=== PATIENT | female | born 1950 | race African-American/Black ===

== ENCOUNTER 2016-09-14 09:43 | Emergency (ER) | payer OTHER ==
[2016-09-14 09:50] VITALS: BP 152/79; PULSE 59; TEMP 97.5; BMI 30.1
[2016-09-14] MEDS ORDERED: IBUPROFEN 600 MG TABLET (FP) PO ONE (10:01)
--- NOTE | 2016-09-14 10:21 | PDOC ---
History of Present Illness - General Chief Complaint: Pain, Acute Stated Complaint: FINGER PAIN Time Seen by Provider: 09/14/16 09:44 History Source: Patient Exam Limitations: No Limitations - History of Present Illness Initial Comments: 09/14/16 10:16 This is a 65-year-old [id number] female who presents to the emergency department with a complaint of middle finger pain. Patient works for [employer], accidentally slammed her middle finger in the door. Patient sustained a crush injury, noted bleeding from the finger. Did not know that the nail bent backwards Patient denies trauma to any other location. PMH: Hypertension, hypothyroidism, depression, prior history of breast cancer PSH: , hysterectomy Medications: Please see MAR A LL: NKDA Social: Denies alcohol, drug, cigarette use GENERAL/CONSTITUTIONAL: No: fever, chills, weakness, loss of appetite. MUSCULOSKELETAL: Yes: right middle finger pain SKIN: Yes: middle finger swelling, bleeding . GENERAL: The patient is in no acute distress. HEAD: Normal with no signs of trauma. EXTREMITIES: Right middle finger, (+) range of motion at PIP, DIP, blood beneath the nail bed (<30%), blood noted at the corners of the nail, NEUROLOGICAL: Sensation of finger in tact MUSCULOSKELETAL: (+) distal phalynx pain SKIN: swelling, brusing, small subungual hematoma Past History - Past Medical History Allergies/Adverse Reactions: Allergies Allergy/AdvReac Type Severity Reaction Status Date / Time No Known Drug Allergies Allergy Verified 09/14/16 09:44 Home Medications: Ambulatory Orders Alendronate Sodium [Fosamax] 70 mg PO WEEKLY 12/11/11 Levothyroxine [Synthroid -] 75 mcg PO DAILY 12/11/11 Citalopram Hydrobromide [Celexa -] 20 mg PO DAILY 08/21/14 Hydrochlorothiazide 25 mg PO DAILY 12/22/15 Losartan Potassium 50 mg PO DAILY 12/22/15 Anemia: No Asthma: No Cancer: No Cardiac Disorders: No CVA: No COPD: No CHF: No Dementia: No Diabetes: No GI Disorders: No Disorders: No HTN: Yes Hypercholesterolemia: No Liver Disease: No Psychiatric Problems: Yes (DEPRESSION, ANXIETY) Suicide Attempt (Hx): No Seizures: No Thyroid Disease: Yes - Surgical History Neurologic Surgery: (DISC SX IN NECK) Orthopedic Surgery: Yes (RT SHOULDER SX, LT KNEE SX) - Immunization History Immunization Up to Date: Yes - Psycho/Social/Smoking Cessation Hx Anxiety: No Suicidal Ideation: No Smoking Status: No Smoking History: Never smoked Have you smoked in the past 12 months: No Number of Cigarettes Smoked Daily: 0 Hx Alcohol Use: Yes Drug/Substance Use Hx: No Substance Use Type: Alcohol Trauma Specific PMHX - Complaint Specific PMHX Arthritis: Yes Back Injury: Yes Neck Injury: Yes *Physical Exam - Vital Signs Last Vital Signs Temp Pulse Resp BP Pulse Ox 97.5 F L 59 L 16 152/79 100 09/14/16 09:44 09/14/16 09:44 09/14/16 09:44 09/14/16 09:44 09/14/16 09:44 ED Treatment Course - RADIOLOGY Radiology Studies Ordered: Category Date Time Status FINGER(S) RIGHT [RAD] Stat Radiology 09/14/16 10:00 Ordered - Medications Given in the ED: ED Medications Discontinued Medications Generic Name Dose Route Start Last Admin Trade Name Jaylyn PRN Reason Stop Dose Admin Ibuprofen 600 mg 09/14/16 10:01 09/14/16 10:06 Motrin - PO 09/14/16 10:02 600 mg ONCE ONE Administration Medical Decision Making - Medical Decision Making 09/14/16 10:20 Pt refused x ray Pt wants to return to work I have explained that the purpose of the x ray is to exclude fracture Pt moves her finger around and states there is no fracture Wound clean and dressed *DC/Admit/Observation/Transfer Diagnosis at time of Disposition: Injury to fingernail Qualifiers: Encounter type: initial encounter Laterality: right Qualified Code(s): S69.91XA - Unspecified injury of right wrist, hand and finger(s), initial encounter Finger injury Qualifiers: Encounter type: initial encounter Laterality: right Qualified Code(s): S69.91XA - Unspecified injury of right wrist, hand and finger(s), initial encounter - Discharge Dispostion Disposition: HOME Condition at time of disposition: Stable Admit: No - Patient Instructions Printed Discharge Instructions: DI for Crush Injury Additional Instructions: Ms Car Thank you for coming in to the ER today Please keep finger clean and covered Please take motrin or tylenol for pain Please monitor the bruise beneath the nail, if it enlarges to more than half of the nail bed, please come back to see us in the ER monitor for signs of infection - Post Discharge Activity Work/School Note: Back to Work
== END 2016-09-14 10:26 | disposition home or self-care (01) ==
LOC: FER 09:43
DX: S69.91XA Unspecified injury of right wrist, hand and finger(s), initial encounter (principal); W23.1XXA Caught, crushed, jammed, or pinched between stationary objects, initial encounter; Y93.89 Activity, other specified; Y92.9 Unspecified place or not applicable; Y99.0 Civilian activity done for income or pay; E03.9 Hypothyroidism, unspecified; F32.9 Major depressive disorder, single episode, unspecified; Z85.3 Personal history of malignant neoplasm of breast
CPT/HCPCS: 99282-25

== ENCOUNTER 2016-11-19 17:30 | Emergency (ER) | payer OTHER ==
--- NOTE | 2016-11-19 18:49 | PDOC ---
History of Present Illness - General History Source: Patient Exam Limitations: No Limitations - History of Present Illness Initial Comments: 11/19/16 18:54 This is a 66 year old female with a significant past medical history of hypertension, hypothyroidism, depression, prior history of breast cancer who presents to the emergency department s/p fall. She reports back of the head pain , neck pain and midline thoracic spine pain s/p fall. Patient states that she fell today in the shower and hit the back of her head. She denies any LOC, nausea or vomiting. PSH: , hysterectomy ALL: NKDA Social: Patient works for [employer] at [employer],. Denies alcohol, drug, cigarette use <Nika Kinsey - Last Filed: 11/19/16 19:00> - General History Source: Patient Exam Limitations: No Limitations <Bing Pettit - Last Filed: 11/20/16 11:04> - General Chief Complaint: Injury Stated Complaint: FELL & STRUCK HEAD, NECK, BACK Time Seen by Provider: 11/19/16 18:48 Past History <Nika Kinsey - Last Filed: 11/19/16 19:00> - Past Medical History Anemia: No Asthma: No Cancer: No Cardiac Disorders: No CVA: No COPD: No CHF: No Dementia: No Diabetes: No GI Disorders: No Disorders: No HTN: Yes Hypercholesterolemia: No Liver Disease: No Psychiatric Problems: Yes (DEPRESSION, ANXIETY) Suicide Attempt (Hx): No Seizures: No Thyroid Disease: Yes - Surgical History Neurologic Surgery: (DISC SX IN NECK) Orthopedic Surgery: Yes (RT SHOULDER SX, LT KNEE SX) - Immunization History Immunization Up to Date: Yes - Psycho/Social/Smoking Cessation Hx Anxiety: No Suicidal Ideation: No Smoking Status: No Smoking History: Never smoked Have you smoked in the past 12 months: No Number of Cigarettes Smoked Daily: 0 Hx Alcohol Use: Yes Drug/Substance Use Hx: No Substance Use Type: Alcohol <Bing Pettit - Last Filed: 11/20/16 11:04> - Past Medical History Allergies/Adverse Reactions: Allergies Allergy/AdvReac Type Severity Reaction Status Date / Time No Known Drug Allergies Allergy Verified 09/14/16 09:44 Home Medications: Ambulatory Orders Levothyroxine [Synthroid -] 75 mcg PO DAILY 12/11/11 Citalopram Hydrobromide [Celexa -] 20 mg PO DAILY 08/21/14 Hydrochlorothiazide 25 mg PO DAILY 12/22/15 Losartan Potassium 50 mg PO DAILY 12/22/15 Trauma Specific PMHX - Complaint Specific PMHX Arthritis: Yes Back Injury: Yes Neck Injury: Yes <Bing Pettit - Last Filed: 11/20/16 11:04> Review of Systems - Review of Systems Able to Perform ROS?: Yes Comments:: 11/19/16 18:54 GENERAL/CONSTITUTIONAL: No: fever, chills, weakness, loss of appetite. HEAD, EYES, EARS, NOSE AND THROAT: (+)back of the head pain. No: change in vision, ear pain, discharge, sore throat, throat swelling. CARDIOVASCULAR: No: chest pain, lightheadedness, palpitations, syncope RESPIRATORY: No: cough, shortness of breath, wheezing, hemoptysis, stridor. GASTROINTESTINAL: No: nausea, vomiting, abdominal cramping, diarrhea, rectal bleeding, constipation. GENITOURINARY: No: dysuria, hematuria, frequency, urgency, flank pain. MUSCULOSKELETAL: (+)neck pain, midline thoracic spine pain. No: joint pain, muscle swelling or pain SKIN: No: lesions, pallor, rash or easy bruising. NEUROLOGIC: No: headache, vertigo, paresthesias, weakness ENDOCRINE: No: unexplained weight gain or loss HEMATOLOGIC/LYMPHATIC: No: anemia, easy bleeding, swelling nodes <Nika Kinsey - Last Filed: 11/19/16 19:00> *Physical Exam - Vital Signs Last Vital Signs Temp Pulse Resp BP Pulse Ox 98.3 F 60 16 135/70 99 11/19/16 18:34 11/19/16 18:34 11/19/16 18:34 11/19/16 18:34 11/19/16 18:34 - Physical Exam Comments: 11/19/16 19:00 GENERAL: The patient is in no acute distress. HEAD: Normal with no signs of trauma. EYES: PERRLA, EOMI, sclera anicteric, conjunctiva clear. ENT: Ears normal, nares patent, oropharynx clear without exudates. Moist mucous membranes. NECK: Normal range of motion, supple without lymphadenopathy, JVD, or masses. LUNGS: Breath sounds equal, clear to auscultation bilaterally. No wheezes, and no crackles. HEART:Regular rate and rhythm, normal S1 and S2 without murmur, rub or gallop. ABDOMEN: Soft, nontender, normoactive bowel sounds. No guarding, no rebound. EXTREMITIES: Normal range of motion, no edema. No clubbing or cyanosis. No erythema, or tenderness. NEUROLOGICAL: Cranial nerves II through XII grossly intact. Normal speech. No focal neurological deficits. MUSCULOSKELETAL: (+)mild tenderness to thoracic spine, no CVA tenderness SKIN: No obvious hematoma. Warm, Dry, normal turgor, no rashes or lesions noted. <Nika Kinsey - Last Filed: 11/19/16 19:00> Medical Decision Making - Medical Decision Making 11/19/16 18:49 A portion of this note was documented by scribe services under my direction. I have reviewed the details of the note, within reason, and agree with the documentation with the following case summary and management plan written by me. Nursing documentation reviewed and incorporated into medical decision making 66- year-old female with a prior history of breast cancer presented to the emergency department status post fall in her bathroom. Patient states she slipped backwards hit the back of her head. No loss of consciousness. No amnesia. Patient presents to the ER for evaluation. Patient reports some pain in her upper back. On examination: Pt is well appearing Mild midline tenderness to palpation No focal weakness or numbness Ambulatory with no difficulty Will do Tylenol for pain. Will do head CT, cervical spine CT. Pt signed out to Dr Grant <Bing Pettit - Last Filed: 11/20/16 11:04> *DC/Admit/Observation/Transfer - Attestations Scribe Attestion: 11/19/16 18:54 Documentation prepared by THEA Emery, acting as medical library assistant for Bing Pettit MD. <Nika Kinsey - Last Filed: 11/19/16 19:00> <Bing Pettit - Last Filed: 11/20/16 11:04> Diagnosis at time of Disposition: Cervical strain, Upper back strain - Discharge Dispostion Disposition: HOME Condition at time of disposition: Stable - Referrals Referrals: Anastasiya Garcia MD [Primary Care Provider] - - Patient Instructions Printed Discharge Instructions: DI for Cervical Muscle Strain Additional Instructions: tylenol as needed for pain no work tomorrow followup with your general doctor within 48 hours - Post Discharge Activity Work/School Note: Back to Work
[2016-11-19 18:53] VITALS: BP 135/70; PULSE 60; TEMP 98.3; BMI 30.1
[2016-11-19] MEDS ORDERED: ACETAMINOPHEN 325 MG TABLET (FP) PO ONE (18:54)
[2016-11-19] MEDS ORDERED: ACETAMINOPHEN 325 MG TABLET (FP) ONE (20:01)
--- NOTE | 2016-11-19 20:29 | PDOC ---
*Physical Exam - Vital Signs Last Vital Signs Temp Pulse Resp BP Pulse Ox 98.3 F 60 16 135/70 99 11/19/16 18:34 11/19/16 18:34 11/19/16 18:34 11/19/16 18:34 11/19/16 18:34 ED Treatment Course - Medications Given in the ED: ED Medications Discontinued Medications Generic Name Dose Route Start Last Admin Trade Name Jaylyn PRN Reason Stop Dose Admin Acetaminophen 975 mg 11/19/16 18:54 11/19/16 20:02 Tylenol - PO 11/19/16 18:55 975 mg ONCE ONE Administration Progress Note - Progress Note Progress Note: Care of this patient received from Dr. Pettit. Medical Decision Making - Medical Decision Making Noncontrast CT of the head and cervical spine CT performed to evaluate for acute trauma. No evidence of intracranial pathology. No evidence of skull fracture. Cervical spine CT shows evidence of previous fusion surgery but no acute fracture or dislocation Results discussed with the patient. Patient will not work tomorrow and documentation was provided for her. Patient states that she will take Tylenol at home. She return to the emergency room if she has severe pain/paresthesias/weakness Follow-up with her general doctor should be within the 48 hrs *DC/Admit/Observation/Transfer Diagnosis at time of Disposition: Cervical strain Qualifiers: Encounter type: initial encounter Qualified Code(s): S16.1XXA - Strain of muscle, fascia and tendon at neck level, initial encounter Upper back strain Qualifiers: Encounter type: initial encounter Qualified Code(s): S29.012A - Strain of muscle and tendon of back wall of thorax, initial encounter - Discharge Dispostion Disposition: HOME Condition at time of disposition: Stable - Referrals Referrals: Anastasiya Garcia MD [Primary Care Provider] - - Patient Instructions Printed Discharge Instructions: DI for Cervical Muscle Strain Additional Instructions: tylenol as needed for pain no work tomorrow followup with your general doctor within 48 hours - Post Discharge Activity Work/School Note: Back to Work
== END 2016-11-19 21:00 | disposition home or self-care (01) ==
LOC: FER 17:30
DX: S16.1XXA Strain of muscle, fascia and tendon at neck level, initial encounter (principal); S29.012A Strain of muscle and tendon of back wall of thorax, initial encounter; W18.30XA Fall on same level, unspecified, initial encounter; Y93.E1 Activity, personal bathing and showering; Y92.002 Bathroom of unspecified non-institutional (private) residence as the place of occurrence of the external cause; F41.8 Other specified anxiety disorders; I10 Essential (primary) hypertension
CPT/HCPCS: 70450-TC; 72070-TC; 72125-TC; 99281-25

== ENCOUNTER 2017-01-31 12:13 | Emergency (ER) | payer MEDICARE ==
[2017-01-31 12:30] VITALS: BP 125/72; PULSE 58; TEMP 98; BMI 27.4
[2017-01-31] MEDS ORDERED: IBUPROFEN 600 MG TABLET (FP) PO ONE ×2 (14:21→14:27)
--- NOTE | 2017-01-31 14:21 | PDOC ---
History of Present Illness - General History Source: Patient Exam Limitations: No Limitations - History of Present Illness Initial Comments: The patient is a 66 yo F with a past medical history significant for hypertension, hypothyroidism, depression, prior history of breast cancer (11 months ago) who presents with 3 days of neck pain s/p cleaning her house and lifting something heavy. The patient also notes a prior neck surgery where she obtained 4 plastic disks approximately 30 years ago. The patient endorses chronic fingertip numbness. The patient states she hasnt taken anything for her neck pain. 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 <Arleth Christian - Last Filed: 01/31/17 14:33> <Julian Wellington - Last Filed: 01/31/17 14:57> - General Chief Complaint: Pain Stated Complaint: NECK STIFFNESS Time Seen by Provider: 01/31/17 14:09 Past History <Arleth Christian - Last Filed: 01/31/17 14:33> - Past Medical History Anemia: No Asthma: No Cancer: No Cardiac Disorders: No CVA: No COPD: No CHF: No Dementia: No Diabetes: No GI Disorders: No Disorders: No HTN: Yes Hypercholesterolemia: No Liver Disease: No Psychiatric Problems: Yes (DEPRESSION, ANXIETY) Suicide Attempt (Hx): No Seizures: No Thyroid Disease: Yes Other medical history: BREAST CANCER - Surgical History Neurologic Surgery: (DISC SX IN NECK) Orthopedic Surgery: Yes (RT SHOULDER SX, LT KNEE SX) - Immunization History Immunization Up to Date: Yes - Psycho/Social/Smoking Cessation Hx Anxiety: No Suicidal Ideation: No Smoking Status: No Smoking History: Never smoked Have you smoked in the past 12 months: No Number of Cigarettes Smoked Daily: 0 Information on smoking cessation initiated: No Hx Alcohol Use: No Drug/Substance Use Hx: No Substance Use Type: None <Julian Wellington - Last Filed: 01/31/17 14:57> - Past Medical History Allergies/Adverse Reactions: Allergies Allergy/AdvReac Type Severity Reaction Status Date / Time No Known Drug Allergies Allergy Verified 01/31/17 12:18 Home Medications: Ambulatory Orders Levothyroxine [Synthroid -] 75 mcg PO DAILY 12/11/11 Citalopram Hydrobromide [Celexa -] 20 mg PO DAILY 08/21/14 Hydrochlorothiazide 25 mg PO DAILY 12/22/15 Losartan Potassium 50 mg PO DAILY 12/22/15 Diclofenac Sodium [Diclofenac Sodium ER] 100 mg PO DAILY #10 tab.er.24h Tamoxifen Citrate 20 mg PO DAILY 01/31/17 Trauma Specific PMHX - Complaint Specific PMHX Arthritis: Yes Back Injury: Yes Neck Injury: Yes <Julian Wellington - Last Filed: 01/31/17 14:57> Review of Systems - Review of Systems Able to Perform ROS?: Yes Comments:: CONSTITUTIONAL: Absent: fever, no chills, no fatigue EYES: Absent: visual changes ENT: Absent: ear pain, no sore throat CARDIOVASCULAR: Absent: chest pain, no palpitations RESPIRATORY: Absent: cough, no SOB GI: Absent: abdominal pain, no nausea, no vomiting, no constipation, no diarrhea GENITOURINARY: Absent: dysuria, no frequency, no hematuria MUSKULOSKELETAL: +neck pain Absent: back pain SKIN: Absent: rash <Arleth Christian - Last Filed: 01/31/17 14:33> *Physical Exam - Vital Signs Last Vital Signs Temp Pulse Resp BP Pulse Ox 98 F 58 L 16 125/72 100 01/31/17 12:14 01/31/17 12:14 01/31/17 12:14 01/31/17 12:14 01/31/17 12:14 - Physical Exam Comments: GENERAL: Well-appearing, well-nourished. No apparent distress. HEENT: Normocephalic, atraumatic. PERRL, EOM intact. mild pain was apparent with movement of the neck in both flexion and extension and rotation. There was deformity or point tenderness of vertibral bodies with mild spasm noted in sternomastoid muscles bilaterally. CARDIOVASCULAR: Normal S1, S2. Regular rate and rhythm. PULMONARY: Clear to auscultation bilaterally. ABDOMEN: Soft, non-distended, non-tender. EXTREMITIES: Normal ROM in all four extremities. No gross deformities. SKIN: Warm, dry. No rash NEUROLOGICAL: No focal neurological deficits. <Arleth Christian - Last Filed: 01/31/17 14:33> - Vital Signs Last Vital Signs Temp Pulse Resp BP Pulse Ox 98 F 58 L 16 125/72 100 01/31/17 12:14 01/31/17 12:14 01/31/17 12:14 01/31/17 12:14 01/31/17 12:14 <Julian Wellington - Last Filed: 01/31/17 14:57> ED Treatment Course - Medications Given in the ED: ED Medications Discontinued Medications Generic Name Dose Route Start Last Admin Trade Name Jaylyn PRN Reason Stop Dose Admin Ibuprofen 600 mg 01/31/17 14:21 01/31/17 14:30 Motrin - PO 01/31/17 14:22 600 mg ONCE ONE Administration <HollandchristianArleth - Last Filed: 01/31/17 14:33> Medical Decision Making - Medical Decision Making 01/31/17 14:55 Patient with prior neck surgery due to cervical disc disease, strained her neck several days ago, with muscle pain and stiffness. No focal neurologic findings. Symptomatic treatment and follow-up primary physician. Recommended rest but the patient desires to go back to work. Soft collar and anti-inflammatories and follow-up as directed. Significantly improved with Motrin. <Julian Wellington - Last Filed: 01/31/17 14:57> *DC/Admit/Observation/Transfer - Attestations Scribe Attestion: Documentation prepared by Arleth Christian, acting as medical receptionist for Julian Shelby MD/. <AnahiArleth - Last Filed: 01/31/17 14:33> - Discharge Dispostion Admit: No <Julian Wellington - Last Filed: 01/31/17 14:57> Diagnosis at time of Disposition: Cervical strain Qualifiers: Encounter type: initial encounter Qualified Code(s): S16.1XXA - Strain of muscle, fascia and tendon at neck level, initial encounter - Discharge Dispostion Disposition: HOME Condition at time of disposition: Improved - Prescriptions Prescriptions: Diclofenac Sodium [Diclofenac Sodium ER] 100 mg PO DAILY #10 tab.er.24h - Referrals Referrals: Jose David Dennison MD [Staff Physician] - - Patient Instructions Printed Discharge Instructions: DI for Cervical Muscle Strain Additional Instructions: Rest, soft collar, medication as directed. Recheck early intervention specialist if no improvement.
== END 2017-01-31 15:16 | disposition home or self-care (01) ==
LOC: FER 12:13
DX: I10 Essential (primary) hypertension (principal); E03.9 Hypothyroidism, unspecified; Z85.3 Personal history of malignant neoplasm of breast; F41.8 Other specified anxiety disorders
CPT/HCPCS: 99282-25

== ENCOUNTER 2017-02-08 09:19 | Emergency (ER) | payer MEDICARE, OTHER ==
--- NOTE | 2017-02-08 09:26 | PDOC ---
History of Present Illness - General Chief Complaint: Eye Problem Stated Complaint: LEFT EYE SWELLING Time Seen by Provider: 02/08/17 09:25 History Source: Patient Exam Limitations: No Limitations - History of Present Illness Initial Comments: 02/08/17 09:25 Patient is a 66 year old female with history of HTN and hypothyroidism presenting with pain and a small bump to the left lower eyelid. Patient stated feeling pain to the left lower eyelid two days ago and then developed a small bump that became larger and progressively more painful. The pain is currently 8 /10, worse when palpating the eyelid and unrelieved with lubricating eye-drops. Patient has no history of similar problems. Today the patient also noted some periorbital puffiness below the left eye. Denies fever, chills, recent illnesses or changes in vision. Past History - Past Medical History Allergies/Adverse Reactions: Allergies Allergy/AdvReac Type Severity Reaction Status Date / Time No Known Drug Allergies Allergy Verified 02/08/17 09:20 Home Medications: Ambulatory Orders Levothyroxine [Synthroid -] 75 mcg PO DAILY 12/11/11 Citalopram Hydrobromide [Celexa -] 20 mg PO DAILY 08/21/14 Hydrochlorothiazide 25 mg PO DAILY 12/22/15 Losartan Potassium 50 mg PO DAILY 12/22/15 Diclofenac Sodium [Diclofenac Sodium ER] 100 mg PO DAILY #10 tab.er.24h Tamoxifen Citrate 20 mg PO DAILY 01/31/17 Anemia: No Asthma: No Cancer: No Cardiac Disorders: No CVA: No COPD: No CHF: No Dementia: No Diabetes: No GI Disorders: No Disorders: No HTN: Yes Hypercholesterolemia: No Liver Disease: No Psychiatric Problems: Yes (DEPRESSION, ANXIETY) Suicide Attempt (Hx): No Seizures: No Thyroid Disease: Yes - Surgical History Neurologic Surgery: (DISC SX IN NECK) Orthopedic Surgery: Yes (RT SHOULDER SX, LT KNEE SX) - Immunization History Immunization Up to Date: Yes - Psycho/Social/Smoking Cessation Hx Anxiety: No Suicidal Ideation: No Smoking Status: No Smoking History: Never smoked Have you smoked in the past 12 months: No Number of Cigarettes Smoked Daily: 0 Hx Alcohol Use: No Drug/Substance Use Hx: No Substance Use Type: None Review of Systems - Review of Systems Able to Perform ROS?: Yes Comments:: 02/08/17 10:05 GEN: Denies fever, chills, recent illness HEENTM: Endorses Pain to the left lower eye-lid, left eye puffiness,. chronic sore throat, Denies Changes to vision, pain with eye movement Respiratory: Denies Cough, Shortness of Breath Cardiac: Denies Chest Pain ABD/GI: Denies Abdominal Pain All Other Systems Reviewed and Negative Is the patient limited Norwegian proficient: No *Physical Exam - Physical Exam Comments: 02/08/17 14:12 GENERAL: Nourished, Appropriately dressed, AAOx3, NAD HEAD: NCAT EYES: PERRLA, EOMI, small ([id number]) swelling on the left lower eyelid with localized edema with erythema, mild lower eyelid edema without erythema, induration or tenderness, sclera anicteric, conjunctiva clear ENT: hearing grossly normal, nares patent, no congestion NECK: Supple, Normal ROM, no LAD, JVD, or masses RESP: Speaking in full sentences, Symmetrical chest expansion, no respiratory distress, lungs CTAB HEART: RRR, normal S1-S2, no MRG ABDOMEN: Soft, NTND, no guarding, no rebound. EXTREMITIES: Normal inspection, Normal ROM NEUROLOGICAL: CN II-XII grossly intact. Normal speech, normal gait, no focal sensorimotor deficits SKIN: Warm, Dry, normal turgor, no rashes or lesions noted. Medical Decision Making - Medical Decision Making 02/08/17 09:25 66 year old female with small tender bump on the left lower eye-lid Ddx includes but is not limited to hordeon, chalazion, pre/post-septal cellulitis Plan Provide instructions for warm compresses Provide ophthalmology followup if no improvement There is no pain on ocular movement or shaneka-orbital tenderness erythema or edema that would raise concern for cellulitis. No eye proptosis. Acute onset of painful edema most consistent with a hordeon. Diagnosis and treatment discussed with patient who expressed her understanding. Patient discharged to home. *DC/Admit/Observation/Transfer Diagnosis at time of Disposition: Hordeolum Qualifiers: Hordeolum type: externum Laterality: left Eyelid: lower Qualified Code(s): H00.015 - Hordeolum externum left lower eyelid - Discharge Dispostion Disposition: HOME Condition at time of disposition: Good Admit: No - Patient Instructions Printed Discharge Instructions: DI for Blepharitis Additional Instructions: Thank you for trusting us with your care today. I hope you were satisfied with the care you received. As we discussed, the pain and swelling in your eye is most likely the result of a hordeolum. This is commonly referred to as a sty. These can be treated by applying a warm compress to the eye several times a day. The easiest way is to use a wash cloth with warm water. If your eye does not start to feel better in a day or two, please call the telephone order dispatcher at the number provided for an appointment within 2-3 days. You should return to the emergency department if you have any significant worsening of your current symptoms or develop any new or concerning symptoms such as redness or increasing pain around the eye, pain with eye movement, or changes in vision. If you are unable to safely drive yourself, you should dial 911 immediately. - Attestations Physician Attestion: 02/08/17 09:48 I, Dr. Rob Flores, attest that this document has been prepared under my direction and personally reviewed by me in its entirety. I further attest, that it accurately reflects all work, treatment, procedures and medical decision -making performed by me.
[2017-02-08 09:29] VITALS: BP 128/70; PULSE 59; TEMP 97.8; BMI 27.8
--- NOTE | 2017-02-08 09:43 | PDOC ---
Attending Attestation - Resident Resident Name: [place],Rob - ED Attending Attestation I have performed the following: I have examined & evaluated the patient, The case was reviewed & discussed with the resident, I agree w/resident's findings & plan, Exceptions are as noted - HPI HPI: 02/08/17 09:32 66yo F hx hypothyroidism, HTN p/w painful L lower eyelid for 2 days a/w swelling. Rates pain at 8/10, tried lubricating drops and ice with minimal relief. No changes to vision, no pain with eye movement, no swelling or redness to upper eyelid. Has never had these sxs before - Physicial Exam PE: 02/08/17 09:43 GENERAL: Awake, alert, and fully oriented, in no acute distress HEAD: No signs of trauma EYES: PERRLA, EOMI, sclera anicteric, conjunctiva clear, L lower eyelid with pinpoint erythematous papule with edema to inferior eyelid but no erythema, warmth, or purulence. No pain with extraocular movements. No proptosis of the orbit or lid lag. 20/20 vision OU ENT: Auricles normal inspection, hearing grossly normal, nares patent, oropharynx clear without exudates. Moist mucosa NECK: Normal ROM, supple, no lymphadenopathy, JVD, or masses LUNGS: Breath sounds equal, clear to auscultation bilaterally. No wheezes, and no crackles HEART: Regular rate and rhythm, normal S1 and S2, no murmurs, rubs or gallops ABDOMEN: Soft, nontender, normoactive bowel sounds. No guarding, no rebound. No masses EXTREMITIES: Normal range of motion, no edema. No clubbing or cyanosis. No cords, erythema, or tenderness NEUROLOGICAL: Normal speech, cranial nerves intact, negative pronator drift, 5/ 5 strength in all 4 extremities, normal sensation to light touch in all 4 extremities, normal cerebellar exam, normal gait, normal reflexes and tone SKIN: Warm, Dry, normal turgor, no rashes or lesions noted. 02/08/17 09:47 - Medical Decision Making 02/08/17 09:45 66-year-old female history of hypertension and hypothyroidism presents with inferior left eyelid swelling and pain. History and exam consistent with a hordeolum. No erythema or warmth or purulence surrounding the eyelid and no fevers or chills, thus unlikely concomitant preseptal cellulitis. Will recommend warm compresses and follow-up with chin strap cutter within 2-3 days if swelling and pain do not improve.
== END 2017-02-08 09:50 | disposition home or self-care (01) ==
LOC: FER 09:19
DX: H00.015 Hordeolum externum left lower eyelid (principal); F41.8 Other specified anxiety disorders; E07.9 Disorder of thyroid, unspecified; I10 Essential (primary) hypertension
CPT/HCPCS: 99281-25

== ENCOUNTER 2017-06-22 14:41 | Emergency (ER) | payer MEDICARE, OTHER ==
[2017-06-22 15:01] VITALS: BP 109/63; PULSE 77; TEMP 99.8; BMI 28.6
--- NOTE | 2017-06-22 15:05 | PDOC ---
History of Present Illness - History of Present Illness Initial Comments: 06/22/17 15:17 The patient is a 66 year old female, with a significant past medical history of hypertension and Breast CA (in remission, taking medication for 5 years), who presents to the emergency department with diffuse body aches, sore throat, chills, cough, and chest pressure for 4 days. The patient states she has been in bed for 3 days, woke up today to make an attempt at going to work, however, states she felt too weak to work. The patient reports her cough is productive of white sputum. She denies shortness of breath, headache and dizziness. She denies fever, nausea , vomit, diarrhea and constipation. She denies dysuria, frequency, urgency and hematuria. Allergies: NKDA Past surgical history: none reported <Rowena Sandra - Last Filed: 06/22/17 17:26> <Eusebia Elkins - Last Filed: 06/22/17 18:27> - General Chief Complaint: Cold Symptoms Stated Complaint: COUGH AND BODY ACHES Time Seen by Provider: 06/22/17 14:57 Past History <Rowena Sandra - Last Filed: 06/22/17 17:26> - Past Medical History Anemia: No Asthma: No Cancer: Yes Cardiac Disorders: No CVA: No COPD: No CHF: No Dementia: No Diabetes: No GI Disorders: No Disorders: No HTN: Yes Hypercholesterolemia: No Liver Disease: No Psychiatric Problems: Yes (DEPRESSION, ANXIETY) Seizures: No Thyroid Disease: Yes - Surgical History Neurologic Surgery: (DISC SX IN NECK) Orthopedic Surgery: Yes (RT SHOULDER SX, LT KNEE SX) - Immunization History Immunization Up to Date: Yes - Suicide/Smoking/Psychosocial Hx Smoking Status: No Smoking History: Never smoked Have you smoked in the past 12 months: No Number of Cigarettes Smoked Daily: 0 Information on smoking cessation initiated: No Hx Alcohol Use: No Drug/Substance Use Hx: No Substance Use Type: None <Eusebia Elkins - Last Filed: 06/22/17 18:27> - Past Medical History Allergies/Adverse Reactions: Allergies Allergy/AdvReac Type Severity Reaction Status Date / Time No Known Drug Allergies Allergy Verified 06/22/17 14:46 Home Medications: Ambulatory Orders Levothyroxine [Synthroid -] 75 mcg PO DAILY 12/11/11 Citalopram Hydrobromide [Celexa -] 20 mg PO DAILY 08/21/14 Hydrochlorothiazide 25 mg PO DAILY 12/22/15 Losartan Potassium 50 mg PO DAILY 12/22/15 Tamoxifen Citrate 20 mg PO DAILY 01/31/17 Guaifenesin AC [Robitussin AC -] 5 ml PO QID PRN #60 ml MDD 20 mL 06/22/17 Review of Systems - Review of Systems Able to Perform ROS?: Yes Comments:: 06/22/17 15:17 GENERAL/CONSTITUTIONAL: (+) chills and subjective fever. No weakness. HEAD, EYES, EARS, NOSE AND THROAT: (+) sore throat. No change in vision. No ear pain or discharge. CARDIOVASCULAR: (+) chest pressure. No chest pain or shortness of breath. RESPIRATORY: (+) productive cough. No wheezing, or hemoptysis. GASTROINTESTINAL: No nausea, vomiting, diarrhea or constipation. GENITOURINARY: No dysuria, frequency, or change in urination. MUSCULOSKELETAL: (+) diffuse body aches. No joint or muscle swelling. No neck or back pain. SKIN: No rash NEUROLOGIC: No headache, vertigo, loss of consciousness, or change in strength/ sensation. ENDOCRINE: No increased thirst. No abnormal weight change. HEMATOLOGIC/LYMPHATIC: No anemia, easy bleeding, or history of blood clots. ALLERGIC/IMMUNOLOGIC: No hives or skin allergy. <Rowena Sandra - Last Filed: 06/22/17 17:26> *Physical Exam - Vital Signs Last Vital Signs Temp Pulse Resp BP Pulse Ox 99.8 F H 77 20 109/63 96 06/22/17 14:44 06/22/17 14:44 06/22/17 14:44 06/22/17 14:44 06/22/17 14:44 - Physical Exam Comments: 06/22/17 15:19 GENERAL: Awake, alert, and fully oriented, in no acute distress HEAD: No signs of trauma EYES: PERRLA, EOMI, sclera anicteric, conjunctiva clear ENT: Auricles normal inspection, hearing grossly normal, nares patent, oropharynx clear without exudates. Moist mucosa NECK: Normal ROM, supple, no lymphadenopathy, JVD, or masses LUNGS: (+) intermittent hacking cough. Breath sounds equal, clear to auscultation bilaterally. No wheezes, and no crackles HEART: Regular rate and rhythm, normal S1 and S2, no murmurs, rubs or gallops ABDOMEN: Soft, nontender, normoactive bowel sounds. No guarding, no rebound. No masses EXTREMITIES: Normal range of motion, no edema. No clubbing or cyanosis. No cords, erythema, or tenderness NEUROLOGICAL: Cranial nerves II through XII grossly intact. Normal speech, normal gait SKIN: Warm, Dry, normal turgor, no rashes or lesions noted. <Rowena Sandra - Last Filed: 06/22/17 17:26> - Vital Signs Last Vital Signs Temp Pulse Resp BP Pulse Ox 99.8 F H 77 20 109/63 96 06/22/17 14:44 06/22/17 14:44 06/22/17 14:44 06/22/17 14:44 06/22/17 14:44 <Eusebia Elkins - Last Filed: 06/22/17 18:27> ED Treatment Course - RADIOLOGY Radiograph Interpretation: EXAM#: TYPE/EXAM: RESULT: [id number] RAD/CHEST PA LAT Rule out pneumonia Chest x-ray, PA and lateral. Since prior chest x-ray dated 08/21/2014, the cardiac silhouette remains within normal limits in size. There are mild perihilar increased lung markings. Mediastinum and visualized osseous structures remain intact with osteopenia and mild degenerative changes in the thoracic spine Impression: No significant interval change or acute cardiopulmonary disease is present Reported By: Nish Mercado MD 06/22/17 1650 <Rowena Sandra - Last Filed: 06/22/17 17:26> Medical Decision Making - Medical Decision Making 06/22/17 17:38 Flu swab negative, however, suspicion for flu remains high. Patient is out of the window for tamiflu. CXR negative for consolidation. Will give one treatment for bronchospasm and monitor for improvement. DC home. 06/22/17 18:27 Pt initially declined the robitussin AC, now stating she would like the rx. Sent to her pharmacy. <Eusebia Elkins - Last Filed: 06/22/17 18:27> *DC/Admit/Observation/Transfer - Attestations Scribe Attestion: 06/22/17 15:19 Documentation prepared by Rowena Sandra, acting as biomedical instrument technician for Eusebia Elkins MD, <Rowena Sandra - Last Filed: 06/22/17 17:26> - Discharge Dispostion Admit: No <Eusebia Elkins - Last Filed: 06/22/17 18:27> Diagnosis at time of Disposition: Viral upper respiratory illness - Discharge Dispostion Disposition: HOME Condition at time of disposition: Stable - Prescriptions Prescriptions: Guaifenesin AC [Robitussin AC -] 5 ml PO QID PRN #60 ml MDD 20 mL PRN Reason: Cough - Patient Instructions Printed Discharge Instructions: DI for Viral Upper Respiratory Infection -- Adult Print Language: ITALIAN
[2017-06-22] MEDS ORDERED: IBUPROFEN 600 MG TABLET (FP) PO ONE ×2 (15:12→15:21)
[2017-06-22] MEDS ORDERED: ALBUTEROL SO4 0.083% IH SOL 2.5 MG/3 ML VIAL.NEB. NEB ONE (17:38)
== END 2017-06-22 18:35 | disposition home or self-care (01) ==
LOC: FER 14:41
PROC: 3E0F7GC Introduction of Other Therapeutic Substance into Respiratory Tract, Via Natural or Artificial Opening (ICD-10-PCS; principal; 2017-06-22)
DX: J06.9 Acute upper respiratory infection, unspecified (principal)
CPT/HCPCS: 71046-TC; 87804; 99282-25

== ENCOUNTER 2018-06-03 17:42 | Emergency (ER) | payer OTHER, MEDICARE ==
[2018-06-03 18:01] VITALS: BP 123/45; PULSE 60; TEMP 97.7; BMI 26.4
[2018-06-03] MEDS ORDERED: KETOROLAC TROMETHAMINE 30 MG/1 ML VIAL IM ONE (18:08)
[2018-06-03] MEDS ORDERED: KETOROLAC TROMETHAMINE 30 MG/1 ML VIAL ONE (18:10)
--- NOTE | 2018-06-03 18:11 | PDOC ---
History of Present Illness - General Chief Complaint: Injury Stated Complaint: RIGHT HAND INJURY Time Seen by Provider: 06/03/18 17:58 History Source: Patient - History of Present Illness Initial Comments: 06/03/18 18:12 The patient is a 67 year old female with a PMH of hypothyroidism, Breast CA and HTN who presents to the ED following a mechanical fall. Patient was walking when she tripped on an umbrella on the floor. Patient states she fell forward inverting her R wrist and hitting her R knee. Denies any associated head trauma. Immediately ambulatory following fall. Coworker brought patient to ED for further evaluation. 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 Patient denies chest pain, shortness of breath, abdominal pain, nausea/vomiting , diarrhea/constipation, dysuria/hematuria. NKDA Surgical: hysterectomy, R shoulder surgery, L knee surgery, herniated disc repair Social: denies current toxic habits; former smoker PMD: Dr. Garza As per EMR patient previously evaluated for fall in 2017 -- patient slipped in the shower. Head/C-spine CT negative. More recently patient evaluated in 2017 for cough and body aches. Past History - Past Medical History Allergies/Adverse Reactions: Allergies Allergy/AdvReac Type Severity Reaction Status Date / Time No Known Drug Allergies Allergy Verified 06/03/18 17:43 Home Medications: Ambulatory Orders Levothyroxine [Synthroid -] 75 mcg PO DAILY 12/11/11 Citalopram Hydrobromide [Celexa -] 20 mg PO DAILY 08/21/14 Hydrochlorothiazide 25 mg PO DAILY 12/22/15 Losartan Potassium 50 mg PO DAILY 12/22/15 Tamoxifen Citrate 20 mg PO DAILY 01/31/17 Ibuprofen [Motrin -] 800 mg PO QID PRN #12 tablet 06/03/18 Anemia: No Asthma: No Cancer: Yes (BREAST) Cardiac Disorders: No CVA: No COPD: No CHF: No Dementia: No Diabetes: No GI Disorders: No Disorders: No HTN: Yes Hypercholesterolemia: No Liver Disease: No Psychiatric Problems: Yes (DEPRESSION, ANXIETY) Seizures: No Thyroid Disease: Yes - Surgical History Neurologic Surgery: (DISC SX IN NECK) Orthopedic Surgery: Yes (RT SHOULDER SX, LT KNEE SX) - Immunization History Immunization Up to Date: Yes - Suicide/Smoking/Psychosocial Hx Smoking Status: No Smoking History: Former smoker Have you smoked in the past 12 months: No Number of Cigarettes Smoked Daily: 0 If you are a former smoker, when did you quit?: 20 YEARS Information on smoking cessation initiated: No Hx Alcohol Use: Yes (SOCIAL) Drug/Substance Use Hx: No Substance Use Type: None *Physical Exam - Vital Signs Last Vital Signs Temp Pulse Resp BP Pulse Ox 97.7 F 60 16 123/45 L 100 06/03/18 17:43 06/03/18 17:43 06/03/18 17:43 06/03/18 17:43 06/03/18 17:43 - Physical Exam General Appearance: Yes: Nourished, Appropriately Dressed HEENT: positive: Normal Voice, Hearing Grossly Normal Neck: positive: Trachea midline, Supple Cardiovascular: positive: Regular Rhythm, Regular Rate, S1, S2. negative: Edema , JVD Vascular Pulses: Dorsalis-Pedis (R): 2+, Doralis-Pedis (L): 2+ Gastrointestinal/Abdominal: positive: Normal Bowel Sounds, Soft Extremity: positive: Normal Capillary Refill, Normal Inspection, Other (RUE: diffuse TTP, minimal edema, limited digit ROM, 2+ radial pulse; RLE: patellar TTP w/abrasion, extensor mechanism intact;) Integumentary: positive: Normal Color, Dry, Warm Neurologic: positive: Fully Oriented, Alert Moderate Sedation - Procedure Monitoring Vital Signs: Procedure Monitoring Vital Signs Temperature 97.7 F 06/03/18 17:43 Pulse Rate 60 06/03/18 17:43 Respiratory Rate 16 06/03/18 17:43 Blood Pressure 123/45 L 06/03/18 17:43 O2 Sat by Pulse Oximetry (%) 100 06/03/18 17:43 Medical Decision Making - Medical Decision Making 06/03/18 18:34 67 year old female s/p mechanical fall c/o R wrist and R patellar pain. VS shows BP 123/45, other VS unremarkable. PE shows RLE: extensor mechanism intact , diffuse patellar tenderness, RUE: diffuse tenderness on dorsal/volar wrist, limited digit ROM. Will obtain R hand/wrist XR w/scaphoid view as well as knee 3 view x-ray. Toradol for pain. Reassess. 06/03/18 19:15 Wet read of wrist XR shows no radial or ulnar dislocation, no carpal bone, including scaphoid fracture Patellar X-ray shows no patellar fracture/dislocation As patient continues to c/o TTP over scaphoid and generally wrist area will splint and referral to ortho for further evaluation including possible repeat XR. Thumb spica splint applied. Patient discharged home with supportive care and orthopedic referral. I discussed the physical exam findings, ancillary test results and final diagnoses with the patient. I answered all of the patient's questions. The patient was satisfied with the care received and felt comfortable with the discharge plan and treatment plan. The patient will return to the Emergency Department with any new, persistent or worsening symptoms. *DC/Admit/Observation/Transfer Diagnosis at time of Disposition: Fall, Wrist sprain - Discharge Dispostion Disposition: HOME Condition at time of disposition: Stable Decision to Admit order: No - Prescriptions Prescriptions: Ibuprofen [Motrin -] 800 mg PO QID PRN #12 tablet PRN Reason: Pain - Referrals Referrals: Denis Abarca MD [Staff Physician] - - Patient Instructions Printed Discharge Instructions: How to Prevent Falls Additional Instructions: You can use Motrin (up to 3200 mg daily) alternating with Tylenol (up to 4000 mg daily) for your pain. Please make an appointment with orthopedic surgery within the next 2 days for evaluation. You should not return to work until cleared by orthopedic surgery and your care is not complete until you are evaluated by an orthopedic surgeon. Return to the Emergency Department for increased pain, numbness or any new/ worsening/concerning symptoms. - Post Discharge Activity Forms/Work/School Notes: Back to Work
--- NOTE | 2018-06-03 18:58 | PDOC ---
Attending Attestation - Resident Resident Name: Margarita Schultz - ED Attending Attestation I have performed the following: I have examined & evaluated the patient, The case was reviewed & discussed with the resident, I agree w/resident's findings & plan, Exceptions are as noted - Medical Decision Making 06/03/18 19:10 No acute fracture dislocation noted on patient's x-ray given tenderness to palpation over the scaphoid patient placed in thumb spica splint Pt will follow-up with orthopedics this week. Findings, need for follow-up and strict return instructions discussed with patient. <Luan Suazo - Last Filed: 06/03/18 19:10> - HPI HPI: 06/03/18 18:58 The patient is a 67 year old female, with a significant past medical history of HTN, breast CA, hypothyroidism, depression and anxiety, who presents to the ED after a mechanical fall today. She reports that she tripped on an umbrella on the floor and fell forward injuring her right hand / wrist and right knee. She denies any head trauma or loss of consciousness. The patient denies chest pain, shortness of breath, headache and dizziness. Allergies: None Past surgical history: RT SHOULDER SX, LT KNEE SX, Neck Surgery, hysterectomy Social History: Alcohol use. Former smoker - Physicial Exam PE: 06/03/18 18:58 Vitals: Triage Vital signs reviewed General Appearance: no acute distress, well nourished well developed, Head: Atraumatic, normocephalic Extremity: (+) Normal Capillary Refill, Normal Inspection, Other (RUE: diffuse TTP, minimal edema, limited digit ROM, 2+ radial pulse; RLE: patellar TTP, extensor mechanism intact;) <Negrito Spencer - Last Filed: 06/03/18 19:10>
== END 2018-06-03 19:24 | disposition home or self-care (01) ==
LOC: FER 17:42
CPT/HCPCS: 73110-TC-RT-FY; 73130-TC-RT-FY; 73562-TC-RT-FY; 99282-25

== ENCOUNTER 2018-06-15 17:34 | Emergency (ER) | payer OTHER, MEDICARE ==
[2018-06-15 17:45] VITALS: BP 156/69; PULSE 58; TEMP 97.5; BMI 26.2
--- NOTE | 2018-06-15 17:48 | PDOC ---
History of Present Illness - General Chief Complaint: Head/Neck problem Stated Complaint: NECK PAIN Time Seen by Provider: 06/15/18 17:40 History Source: Patient Exam Limitations: No Limitations - History of Present Illness Initial Comments: 06/15/18 17:43 67 y/o female fell at work 1 week ago and injurred her right hand. Comes to ER today complaining of neck pain for 3 days. Hurts more with movement. Has not taken anything for the pain. No weakness, numbness, headache, fever or incontinence. Requesting a soft collar. Severity: mild Modifying Factors: improves with: immobilization Past History - Past Medical History Allergies/Adverse Reactions: Allergies Allergy/AdvReac Type Severity Reaction Status Date / Time No Known Drug Allergies Allergy Verified 06/03/18 17:43 Home Medications: Ambulatory Orders Levothyroxine [Synthroid -] 75 mcg PO DAILY 12/11/11 Citalopram Hydrobromide [Celexa -] 20 mg PO DAILY 08/21/14 Hydrochlorothiazide 25 mg PO DAILY 12/22/15 Losartan Potassium 50 mg PO DAILY 12/22/15 Tamoxifen Citrate 20 mg PO DAILY 01/31/17 Ibuprofen [Motrin -] 800 mg PO QID PRN #12 tablet 06/03/18 Cyclobenzaprine HCl [Flexeril -] 10 mg PO TID #10 tablet 06/15/18 Anemia: No Asthma: No Cancer: Yes (BREAST) Cardiac Disorders: No CVA: No COPD: No CHF: No Dementia: No Diabetes: No GI Disorders: No Disorders: No HTN: Yes Hypercholesterolemia: No Liver Disease: No Psychiatric Problems: Yes (DEPRESSION, ANXIETY) Seizures: No Thyroid Disease: Yes - Surgical History Neurologic Surgery: (DISC SX IN NECK) Orthopedic Surgery: Yes (RT SHOULDER SX, LT KNEE SX) - Immunization History Immunization Up to Date: Yes - Suicide/Smoking/Psychosocial Hx Smoking Status: No Smoking History: Former smoker Have you smoked in the past 12 months: No Number of Cigarettes Smoked Daily: 0 If you are a former smoker, when did you quit?: 20 YEARS Hx Alcohol Use: Yes (SOCIAL) Drug/Substance Use Hx: No Substance Use Type: None Review of Systems - Review of Systems Able to Perform ROS?: Yes Is the patient limited Urdu proficient: No Constitutional: No: Chills, Fever HEENTM: No: Blurred Vision, Throat Pain Respiratory: No: Cough, Shortness of Breath Cardiac (ROS): No: Chest Pain ABD/GI: No: Nausea, Vomiting : No: Burning Musculoskeletal: Yes: Muscle Pain, Neck Pain. No: Back Pain Neurological: No: Headache, Numbness, Paresthesia All Other Systems: Reviewed and Negative *Physical Exam - Physical Exam General Appearance: Yes: Nourished, Appropriately Dressed. No: Apparent Distress HEENT: positive: EOMI, MIKE, Normal ENT Inspection, Normal Voice, Symmetrical, Pharynx Normal Neck: positive: Trachea midline, Normal Thyroid, Supple. negative: Tender, Rigid Respiratory/Chest: positive: Lungs Clear, Normal Breath Sounds. negative: Chest Tender, Respiratory Distress Cardiovascular: positive: Regular Rhythm, Regular Rate, S1, S2. negative: Edema , JVD, Murmur Vascular Pulses: Femoral (R): 4+, Femoral (L): 4+, Carotid (R): 4+, Carotid (L) : 4+, Dorsalis-Pedis (R): 4+, Doralis-Pedis (L): 4+ Gastrointestinal/Abdominal: positive: Normal Bowel Sounds, Flat, Soft. negative : Tender Lymphatic: negative: Adenopathy, Tenderness, Other Musculoskeletal: positive: Normal Inspection, Muscle Spasm (tenderness to paracervical muscles b/l, no spinous process tenderness, full ROM). negative: CVA Tenderness, Vertebral Tenderness Extremity: positive: Normal Capillary Refill, Normal Inspection, Normal Range of Motion Integumentary: positive: Normal Color, Dry, Warm. 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: editing clerk II-XII NML intact, Fully Oriented, Normal Mood/Affect , Normal Response, Motor Strength 5/5 (strength 5+/5 b/l in UE and LE, no focal deficits noted) ED Treatment Course - ADDITIONAL ORDERS Additional order review: 06/15/18 18:18 Pt doing well, no neurological deficits noted Will place in soft collar Flexeril, rest Follow up with PMD If worsen return to ER Pt is in agreement with plan 06/15/18 18:19 X-ray cervical spine: hardware in place, no fracture, straightening of lordotic curve - RADIOLOGY Radiology Studies Ordered: Category Date Time Status SPINE-CERVICAL [RAD] Stat Radiology 06/15/18 17:42 Ordered *DC/Admit/Observation/Transfer Diagnosis at time of Disposition: Cervical strain, acute Qualifiers: Encounter type: initial encounter Qualified Code(s): S16.1XXA - Strain of muscle, fascia and tendon at neck level, initial encounter - Discharge Dispostion Disposition: HOME Condition at time of disposition: Good Decision to Admit order: No - Referrals Referrals: Blanca Hernandez MD [Primary Care Provider] - - Patient Instructions Printed Discharge Instructions: DI for Cervical Muscle Strain Additional Instructions: Ice, Motrin, rest Flexeril 10 mg 3x/day as needed Soft collar as directed If worsen return to ER - Post Discharge Activity
== END 2018-06-15 18:25 | disposition home or self-care (01) ==
LOC: FER 17:34 → SUPCPDRO 17:34 → FER 18:25
DX: S16.1XXA Strain of muscle, fascia and tendon at neck level, initial encounter (principal); X58.XXXA Exposure to other specified factors, initial encounter; Y93.89 Activity, other specified; Y92.89 Other specified places as the place of occurrence of the external cause; Z87.891 Personal history of nicotine dependence; F41.8 Other specified anxiety disorders; E07.9 Disorder of thyroid, unspecified; I10 Essential (primary) hypertension; Z85.3 Personal history of malignant neoplasm of breast
CPT/HCPCS: 72050-TC-FY; 99282-25

== ENCOUNTER 2018-12-16 21:39 | Emergency (ER) | payer OTHER ==
[2018-12-16 21:46] VITALS: BP 135/66; PULSE 71; TEMP 99; BMI 28.0
[2018-12-16] MEDS ORDERED: KETOROLAC TROMETHAMINE 60 MG/2 ML VIAL IM ONE (22:05)
[2018-12-16] MEDS ORDERED: KETOROLAC TROMETHAMINE 60 MG/2 ML VIAL ONE (22:23)
== END 2018-12-16 23:43 | disposition home or self-care (01) ==
LOC: FER 21:39
PROC: 3E0233Z Introduction of Anti-inflammatory into Muscle, Percutaneous Approach (ICD-10-PCS; principal; 2018-12-16)
DX: S29.011A Strain of muscle and tendon of front wall of thorax, initial encounter (principal); X58.XXXA Exposure to other specified factors, initial encounter; Y93.89 Activity, other specified; Y92.89 Other specified places as the place of occurrence of the external cause; Z85.3 Personal history of malignant neoplasm of breast; G89.29 Other chronic pain
CPT/HCPCS: 99281-25

== ENCOUNTER 2019-12-20 14:10 | Emergency (ER) | payer OTHER ==
[2019-12-20 14:16] VITALS: BP 140/71; PULSE 62; TEMP 98.8; BMI 28.1
[2019-12-20 14:48] LABS: BASO % 0.7 % (0-2.0); EOS % 2.8 % (0-4.5); HEMOGLOBIN 11.8 GM/dl (10.7-15.3); MCH 30.9 pg (25.7-33.7); MCHC 32.9 g/dl (32.0-36.0); MEAN CELL VOLUME 93.9 fl (80-96); MEAN PLT VOLUME 10.3 fl (7.5-11.1); NEUT % 50.5 % (42.8-82.8); PLATELET COUNT 166 K/MM3 (134-434); RBC 3.83 M/mm3 (3.60-5.2); RDW 13.3 % (11.6-15.6); WHITE BLOOD COUNT 4.4 K/mm3 (4.0-10.8)
[2019-12-20 15:03] LABS: ALBUMIN 3.7 g/dl (3.4-5.0); BILIRUBIN,TOTAL 0.6 mg/dl (0.2-1); CALCIUM 9.3 mg/dl (8.5-10); CREATININE 1.2 mg/dl (0.55-1.3); POTASSIUM 3.5 mmol/L (3.5-5.1); TOT PROT 6.9 g/dl (6.4-8.2)
--- NOTE | 2019-12-20 15:37 | PDOC ---
Documentation entered by Otto Benitez SCRIBE, acting as scribe for Nirav Guerrero MD. Nirav Guerrero MD: This documentation has been prepared by the cheryibeFlores Angel, SCRIBE, under my direction and personally reviewed by me in its entirety. I confirm that the documentation accurately reflects all work, treatment, procedures, and medical decision making performed by me. History of Present Illness - General Chief Complaint: Chest Pain Stated Complaint: LEFT CHEST PAIN, TENDER History Source: Patient Exam Limitations: No Limitations - History of Present Illness Initial Comments: 12/20/19 14:20 The patient is a 69 year old female with a significant past medical history of hypothyroidism, Breast CA and HTN who presents to the ED with left sided chest pain. The patient states about 2 hours ago she began experiencing left sided chest pain when she moves her left arm. The patient endorses pain on palpation as well. The patient reports pain during deep breaths and notes taking Tylenol and Excedrin for the pain with minimal relief. No back pain. Denies fall trauma or lifting. The patient denies fever/chills, N/V/D, or SOB. 12/20/19 15:34 Beta Stephan Contraindications (Core Measure): Yes: Not Prescribed Past History - Medical History Allergies/Adverse Reactions: Allergies Allergy/AdvReac Type Severity Reaction Status Date / Time No Known Drug Allergies Allergy Verified 12/20/19 14:10 Home Medications: Ambulatory Orders Levothyroxine [Synthroid -] 75 mcg PO DAILY 12/11/11 Citalopram Hydrobromide [Celexa -] 20 mg PO DAILY 08/21/14 Hydrochlorothiazide 25 mg PO DAILY 12/22/15 Losartan Potassium 50 mg PO DAILY 12/22/15 Acetaminophen [Tylenol -] 1,000 mg PO ONCE 12/20/19 Anemia: No Asthma: No Cancer: Yes (BREAST) Cardiac Disorders: No CVA: No COPD: No CHF: No Dementia: No Diabetes: No GI Disorders: No Disorders: No HTN: Yes Hypercholesterolemia: No Liver Disease: No Psychiatric Problems: Yes (DEPRESSION, ANXIETY) Seizures: No Thyroid Disease: Yes - Surgical History Neurologic Surgery: (DISC SX IN NECK) Orthopedic Surgery: Yes (RT SHOULDER SX, LT KNEE SX) - Immunization History Immunization Up to Date: Yes - Psycho-Social/Smoking History Smoking Status: No Smoking History: Never smoked Have you smoked in the past 12 months: No Number of Cigarettes Smoked Daily: 0 If you are a former smoker, when did you quit?: 20 YEARS Cardiac Specific PMH - Complaint Specific PMHX Pacemaker: No Review of Systems - Review of Systems Able to Perform ROS?: Yes Respiratory: No: Cough, Shortness of Breath Cardiac (ROS): Yes: Chest Pain (Left sided chest pain.) ABD/GI: No: Nausea, Vomiting *Physical Exam - Vital Signs Last Vital Signs Temp Pulse Resp BP Pulse Ox 98.8 F 62 18 140/71 98 12/20/19 14:10 12/20/19 14:10 12/20/19 14:10 12/20/19 14:10 12/20/19 14:10 - Physical Exam 12/20/19 14:26 GENERAL: Awake, alert, and fully oriented, in no acute distress HEAD: No signs of trauma EYES: PERRLA, EOMI, sclera anicteric, conjunctiva clear ENT: Auricles normal inspection, hearing grossly normal, nares patent, oropharynx clear without exudates. Moist mucosa NECK: Normal ROM, supple, no lymphadenopathy, JVD, or masses LUNGS: Breath sounds equal, clear to auscultation bilaterally. No wheezes, and no crackles HEART: Regular rate and rhythm, normal S1 and S2, no murmurs, rubs or gallops CHEST: +Reproducible left anterior chest wall pain. ABDOMEN: Soft, nontender, normoactive bowel sounds. No guarding, no rebound. No masses EXTREMITIES: Normal range of motion, no edema. No clubbing or cyanosis. No c ords, erythema, or tenderness NEUROLOGICAL: Cranial nerves II through XII grossly intact. Normal speech, normal gait SKIN: Warm, Dry, normal turgor, no rashes or lesions noted. Heart Score/ECG Review - History History: Slightly suspicious - Electrocardiogram EKG: Normal - Age Age: >/= 65 - Risk Factors Risk Factors Heart Score: Yes Hx Hypertension Based on the list above the patient has:: 1-2 risk factors - Troponin Troponin: </= normal limit - Score Heart Score - Total: 3 - [facility]: Normal Comment: 12/20/19 14:40 EKG done at 1426 HR 59 sinus bradycardia no STEMI ED Treatment Course - LABORATORY CBC & Chemistry Diagram: 12/20/19 14:44 12/20/19 14:17 - ADDITIONAL ORDERS Additional order review: Laboratory Results 12/20/19 12/20/19 14:17 14:17 Sodium 141 Potassium 3.5 Chloride 102 Carbon Dioxide 29 Anion Gap 10 BUN 24.0 H Creatinine 1.2 Est GFR (CKD-EPI)AfAm 53.78 Est GFR (CKD-EPI)NonAf 46.40 Random Glucose 91 Calcium 9.3 Total Bilirubin 0.6 AST 19 ALT 19 Alkaline Phosphatase 36 L Troponin I < 0.03 Total Protein 6.9 Albumin 3.7 12/20/19 14:44 RBC 3.83 MCV 93.9 MCHC 32.9 RDW 13.3 MPV 10.3 Neutrophils % 50.5 Lymphocytes % 37.0 Monocytes % 9.0 Eosinophils % 2.8 Basophils % 0.7 Patient with reproducible chest wall pain on palpation Cardiac work up negative CXR negative EKG normal sinus bradycardia - RADIOLOGY Radiology Studies Ordered: Category Date Time Status CHEST X-RAY PORTABLE* [RAD] Stat Radiology 12/20/19 14:16 Completed Discharge - Discharge Information Problems reviewed: Yes Clinical Impression/Diagnosis: Costochondral chest pain Condition: Stable Disposition: HOME - Admission No - Follow up/Referral - Patient Discharge Instructions Patient Printed Discharge Instructions: DI for Costochondritis Additional Instructions: Ice, Motrin, rest If worsen return to ER - Post Discharge Activity
--- NOTE | 2019-12-21 10:28 | EKG ---
Test Reason : Blood Pressure : / mmHG Vent. Rate : 059 BPM Atrial Rate : 059 BPM P-R Int : 178 ms QRS Dur : 072 ms QT Int : 470 ms P-R-T Axes : 056 027 024 degrees QTc Int : 465 ms SINUS BRADYCARDIA OTHERWISE NORMAL ECG WHEN COMPARED WITH ECG OF 21-AUG-2014 12:29, NONSPECIFIC T WAVE ABNORMALITY NO LONGER EVIDENT IN ANTEROLATERAL LEADS Confirmed by Kirsten Buck ([id number]) on 12/21/2019 10:27:57 AM Referred By: FELICIA HERRERA Confirmed By:Kirsten Buck
== END 2019-12-20 15:40 | disposition home or self-care (01) ==
LOC: FER 14:10
DX: M94.0 Chondrocostal junction syndrome [Tietze] (principal)
CPT/HCPCS: 36415; 71045-TC-FY; 80053; 84484; 85025; 93005; 99284-25

== ENCOUNTER 2020-04-06 04:38 | Day surgery (SDC) | payer OTHER ==
--- OUTSIDE RECORDS SUMMARY | 2020-03-23 08:20 | XMS ---
:1950 Author Organization [facility] Care Team Providers Name Role Phone Roston, Santosh Unavailable Unavailable Roston, Santosh Unavailable Unavailable Roston, Santosh Unavailable Unavailable Roston, Santosh Unavailable Unavailable Roston, Satnosh Unavailable Unavailable Roston, Santosh Unavailable Unavailable Roston, Santosh Unavailable Unavailable Roston, Santosh Unavailable Unavailable Re-disclosure Warning The records that you are about to access may contain information from federally- assisted alcohol or drug abuse programs. If such information is present, then the following federally mandated warning applies: This information has been disclosed to you from records protected by federal confidentiality rules (42 CFR part 2). The federal rules prohibit you from making any further disclosure of this information unless further disclosure is expressly permitted by the written consent of the person to whom it pertains or as otherwise permitted by 42 CFR part 2. A general authorization for the release of medical or other information is NOT sufficient for this purpose. The Federal rules restrict any use of the information to criminally investigate or prosecute any alcohol or drug abuse patient.The records that you are about to access may contain highly sensitive health information, the redisclosure of which is protected by Article 27-F of the [facility] Public Health law. If you continue you may haveaccess to information: Regarding HIV / AIDS; Provided by facilities licensed or operated by the [facility] Office of Mental Health; or Provided by the [facility] Office for People With Developmental Disabilities. If such information is present, then the following [facility] mandated warning applies: This information has been disclosed to you from confidential records which are protected by state law. State law prohibits you from making any further disclosure of this information without the specific written consent of the person to whom it pertains, or as otherwise permitted by law. Any unauthorized further disclosure in violation of state law may result in a fine or penitentiary sentence or both. A general authorization for the release of medical or other information is NOT sufficient authorization for further disclosure. Allergies and Adverse Reactions Type Description Substance Reaction Status Data Source(s ) Propensity to fruit:kiwi, apple No known itch Active eCW3 ([facility] adverse reactions allergies [facility]) Propensity to fruit:kiwi, apple No known itch Active eCW3 ([facility] adverse reactions allergies [facility]) Propensity to fruit:kiwi, apple No known itch Active eCW3 ([facility] adverse reactions allergies [facility]) Family History Family Member Family Member Family Member Date of Description Data Source(s) Name Gender Status Status Unknown Female Problem MEDENT (Digestive Disease & Nutrition [facility] ) Encounters Encounter Providers Location Date Indications Data Source(s ) (NBillable) [facility] 04/29/2019 eCW3 ([facility] son Lab/Outreach/[facility] A28 12:00:00 [facility]/Care AM EST - Care) Management 04/29/2019 12:00:00 AM EST Outpatient [facility] 02/19/2019 eCW3 ([facility]:00 [facility] - Care) 02/19/2019 12:00:00 AM EDT Outpatient [facility] 09/30/2018 eCW3 ([facility] 12:00:00 [facility]T - Care) 09/30/2018 12:00:00 AM EDT Outpatient Attender: Santosh Digestive 08/21/2018 MEDENT [place] Disease & 10:10:00 (Digestive Nutrition AM EST Disease & [facility]) Outpatient Attender: Santosh Digestive 05/26/2018 MEDENT [place] Disease & 04:20:00 (Digestive Nutrition PM EST Disease & Center [facility]) Outpatient Attender: Santosh Digestive 05/21/2018 MEDENT [place] Disease & 04:25:00 (Digestive Nutrition PM EST Disease & Center Nutrition [facility]) Outpatient Attender: Santosh Digestive 04/14/2018 MEDENT [place] Disease & 05:20:00 (Digestive Nutrition PM EDT Disease & Center Nutrition [facility]) Outpatient Attender: Santosh Digestive 02/10/2018 MEDENT [place] Disease & 12:15:00 (Digestive Nutrition PM EDT Disease & Center Nutrition [facility]) Outpatient Attender: Santosh Digestive 02/03/2018 MEDENT [place] Disease & 02:30:00 (Digestive Nutrition PM EDT Disease & Center Nutrition [facility]) Immunizations Vaccine Date Status Description Data Source(s) pneumococcal 09/01/2019 completed eCW3 ([facility] Ri meeta polysaccharide PPV23 10:53:00 AM [facility]) New in 2011. IIV4 02/19/2019 completed eCW3 ([facility] 12:30:00 PM [facility]) New in 2011. IIV4 02/19/2019 completed eCW3 ([facility] [place] 12:30:00 PM [facility]) New in 2011. IIV4 04/16/2018 completed eCW3 ([facility] [place] 02:18:00 PM [facility]) IIV3. This vaccine code is 04/05/2016 completed e CW3 ([facility] [place] one of two which replace 05:48:00 PM [facility]) CVX 15, influenza, split virus. New in 2011. IIV4 05/02/2015 completed eCW3 ([facility] [place] 09:04:00 AM [facility]) IIV3. This vaccine code is 05/11/2014 completed e CW3 ([place] [place] one of two which replace 05:41:00 PM [facility]) CVX 15, influenza, split virus. IIV3. This is one of two 02/26/2013 completed eCW 3 ([facility] [place] codes replacing CVX 15, 11:50:00 AM EDT [facility]ly [facility]) which is being retired. Medications Medication Brand Start Product Dose Route Administrative Pharmacy St atus Indications Reaction Description Data Name Date Form Instructions Instructions Source(s) Loratadine Lorata .0 active Loratadi ne eCW3 10 MG Oral dine 2019 {tabl 10 MG ([facility] Tablet 10 MG 12:00: et} [facility] 00 AM Health EDT Care) Fluticasone Flutic .0 active Flutica sone eCW3 Propionate asone 2019 {spra Propionate ( [facility] 50 MCG/ACT Propio 12:00: y_in_ 50 MCG/AC T [facility]) MCG/AC il} T Ketotifen Ketoti 12/09/ active Ketotifen eCW3 0.25 MG/ML fen 2020 Fumarate ([facility] Fumara 12:00: 0.025 % Ri meeta Solution te 00 Health Ketotifen 0.025 EDT Care) Fumarate % 0.025 % Loratadine Lorata .0 active Loratadi ne eCW3 10 MG Oral dine 2019 {tabl 10 MG ([place] Tablet 10 MG 12:00: et} [facility] 00 AM Health EDT Care) Ketotifen Ketoti 12/09/ active Ketotifen eCW3 0.25 MG/ML fen 2020 Fumarate ([facility] 12:00: 0.025 % Ri meeta Solution te 00 AM [facility] Ketotifen 0.025 EDT Care) Fumarate % 0.025 % Fluticasone Flutic .0 active Flutica sone eCW3 Propionate asone 2019 {spra Propionate ( [facility] 50 MCG/ACT Propio 12:00: y_in_ 50 MCG/AC T [facility]) MCG/AC il} T meloxicam Meloxi .0 suspend Meloxica m 15 eCW3 15 MG Oral cam 2018 {tabl ed MG ([facility] Tablet MG 12:00: et} [facility] Meloxicam 00 AM Health 15 MG EDT Care) meloxicam Meloxi .0 suspend Meloxica m 15 eCW3 15 MG Oral cam 2018 {tabl ed MG ([facility] Tablet MG 12:00: et} [facility] Meloxicam 00 AM Health 15 MG EDT Care) meloxicam Meloxi .0 suspend Meloxica m 15 eCW3 15 MG Oral cam 15 2018 {tabl ed MG ([facility] [facility] Tablet MG 12:00: et} [facility] Meloxicam 00 AM Health 15 MG EDT Care) Ursodiol Ursodi 02/03/ ORAL active MEDEN T 500 MG Oral ol 2017 (Digesti ve Tablet 12:00: Disease & 00 AM Nutrition EDT Center [facility] r) Hydrochloro Hydroc 1.0 active Hydroch lorot eCW3 thiazide 25 hlorot 2015 {tabl hiazide 25 ([facility] MG Oral hiazid 12:00: et} MG [facility] Tablet e 25 00 AM Health MG EDT Care) Hydrochloro Hydroc 1.0 active Hydroch lorot eCW3 thiazide 25 hlorot 2015 {tabl hiazide 25 ([facility] MG Oral hiazid 12:00: et} MG [place] Tablet e 25 00 AM Health MG EDT Care) Hydrochloro Hydroc 1.0 active Hydroch lorot eCW3 thiazide 25 hlorot 2015 {tabl hiazide 25 ([facility] MG Oral hiazid 12:00: et} MG [facility] Tablet e 25 00 AM Health MG EDT Care) Calcium + D Calciu .0 active Calcium + D eCW3 315-200 m + D 2014 {tabl 315-200 ([facility] MG-UNIT 315-20 12:00: et_wi MG-UNIT Rive r 0 00 AM th_mo Health MG-UNI EST als} Care) T Calcium + D Calciu .0 active Calcium + D eCW3 315-200 m + D 2014 {tabl 315-200 ([facility] MG-UNIT 315-20 12:00: et_wi MG-UNIT Rive r 0 00 AM th_me Health MG-UNI EST als} Care) T Calcium + D Calciu .0 active Calcium + D eCW3 315-200 m + D 2014 {tabl 315-200 ([facility] MG-UNIT 315-20 12:00: et_wi MG-UNIT Rive r 0 00 AM th_me Health MG-UNI EST als} Care) T Omeprazole Omepra .0 active Omeprazo le eCW3 40 MG zole 2013 {caps 40 mg ([facility] Delayed 40 mg 12:00: ule} [facility] Release 00 AM Health Oral EDT Care) Capsule Omeprazole 40 mg Omeprazole Omepra 1.0 active Omeprazo le eCW3 40 MG zole 2013 {caps 40 mg ([facility] Delayed 40 mg 12:00: ule} [facility] Release 00 AM Health Oral EDT Care) Capsule Omeprazole 40 mg Omeprazole Omepra .0 active Omeprazo le eCW3 40 MG zole 2013 {caps 40 mg ([facility] Delayed 40 mg 12:00: ule} [facility] Release 00 AM Health Oral EDT Care) Capsule Omeprazole 40 mg Losartan Losart .0 active Losartan e CW3 Potassium an 2013 {tabl Potassium 50 ( [facility] 50 MG Oral Potass 12:00: et} mg [place] Tablet ium 50 00 AM Health Losartan mg EDT Care) Potassium 50 mg Losartan Losart .0 active Losartan e CW3 Potassium an 2013 {tabl Potassium 50 ( [place] 50 MG Oral Potass 12:00: et} mg [facility] Tablet ium 50 00 AM Health Losartan mg EDT Care) Potassium 50 mg Losartan Losart .0 active Losartan e CW3 Potassium an 2013 {tabl Potassium 50 ( [facility] 50 MG Oral Potass 12:00: et} mg [place] Tablet ium 50 00 AM Health Losartan mg EDT Care) Potassium 50 mg Citalopram Citalo .0 active Citalopr am eCW3 20 MG Oral pram 2012 {tabl Hydrobromide ([facility] Tablet Hydrob 12:00: et} 20 mg [facility] Citalopram romide 00 AM Health Hydrobromid 20 mg EDT Care) e 20 mg Citalopram Citalo 1.0 active Citalopr am eCW3 20 MG Oral pram 2012 {tabl Hydrobromide ([facility] Tablet Hydrob 12:00: et} 20 mg [facility] Citalopram romide 00 AM Health Hydrobromid 20 mg EDT Care) e 20 mg Citalopram Citalo 1.0 active Citalopr am eCW3 20 MG Oral pram 2012 {tabl Hydrobromide ([facility] Tablet Hydrob 12:00: et} 20 mg [facility] Citalopram romide 00 AM Health Hydrobromid 20 mg EDT Care) e 20 mg Tamoxifen Tamoxi active Tamoxifen e CW3 20 MG Oral fen Citrate 20 ([facility] Tablet Citrat mg [facility] Tamoxifen e 20 Health Citrate 20 mg Care) mg Levothyroxi Levoth active Levothyro debora eCW3 ne Sodium yroxin e Sodium 75 ( [facility] 0.075 MG e MCG [facility] Oral Tablet Sodium Health Levothyroxi 75 MCG Care) ne Sodium 75 MCG Tamoxifen Tamoxi active Tamoxifen e CW3 20 MG Oral fen Citrate 20 (Hu dson Tablet Citrat mg [facility] Tamoxifen e 20 Health Citrate 20 mg Care) mg Tamoxifen Tamoxi active Tamoxifen e CW3 20 MG Oral fen Citrate 20 (Hu dson Tablet Citrat mg [facility] Tamoxifen e 20 Health Citrate 20 mg Care) mg Levothyroxi Levoth active Levothyro debora eCW3 ne Sodium yroxin e Sodium 75 ( [facility] 0.075 MG e MCG [place] Oral Tablet Sodium Health Levothyroxi 75 MCG Care) ne Sodium 75 MCG Losartan Losart ORAL active MEDENT Potassium an (Digestive 50 MG Oral Potass Disease & Tablet ium Nutrition [facility]) meloxicam Meloxi ORAL active MEDENT 7.5 MG Oral cam (Digesti ve Tablet Disease & Nutrition [facility]) Citalopram Citalo ORAL active MEDEN T 10 MG Oral pram (Digestiv e Tablet Hydrob Disease & romide Nutrition [facility]) Tamoxifen Tamoxi ORAL active MEDENT 20 MG Oral fen (Digestiv e Tablet Citrat Disease & e Nutrition [facility]) Levothyroxi Levoth ORAL active MEDE NT ne Sodium yroxin (Digesti ve 0.088 MG e Disease & Oral Tablet Sodium Nutrit ion [facility]) Levothyroxi Levoth active Levothyro debora eCW3 ne Sodium yroxin e Sodium 75 ( [facility] 0.075 MG e MCG [facility] Oral Tablet Sodium Health Levothyroxi 75 MCG Care) ne Sodium 75 MCG Insurance Providers Payer name Policy type / Policy ID Covered Covered libertarian's Policy Plan Coverage type libertarian ID relationship to Perez Information perez MANAN PHAN MEDICARE [facility] Commercial [id number] Self [id number] Medicare Medicaid [facility] Part [id number] Self [id number] [employer] Commercial [id number] Self [id number] Medicare Ppo Problems, Conditions, and Diagnoses Code Display Name Description Problem Effective Data Type Dates Source(s) M25.512 Pain in left Pain in left Problem 01/04/2020 eCW3 ([facility] [place] shoulder 12:00:00 AM [facility] EDT Care) G89.29 Other chronic pain Other chronic pain Problem 0 eCW3 ([facility] 12:00:00 AM [facility] EDT Care) M25.511 Pain in right Pain in right Problem 01/04/2020 eCW3 ([facility] shoulder shoulder 12:00:00 AM [facility] EDT Care) F32.4 Major depression Major depress, part Problem 09/16/2019 eCW3 ([facility] single episode, in remis 12:00:00 AM [facility] partial remission EDT Care) F32.4 Major depression Major depress, part Problem 09/16/2019 eCW3 ([facility] single episode, in remis 12:00:00 AM [facility] partial remission EDT Care) Z68.30 Body mass index Body mass index Problem 09/12/2019 eCW3 ([facility] (BMI) 30.0-30.9, (BMI) 30.0-30.9, 12:00:00 AM [facility] adult adult EDT Care) E66.09 Other obesity due Other obesity due Problem 09/12/2019 eCW3 ([place] to excess calories to excess calories 12:00:00 AM [facility] EDT Care) E66.09 Other obesity due Other obesity due Problem 09/12/2019 eCW3 ([place] to excess calories to excess calories 12:00:00 AM [facility] EDT Care) Z68.30 Body mass index Body mass index Problem 09/12/2019 eCW3 ([facility] (BMI) 30.0-30.9, (BMI) 30.0-30.9, 12:00:00 AM [facility] adult adult EDT Care) H57.9 Disorder of eye, Disorder of eye, Problem 10/16/2018 eC W3 ([facility] unspecified unspecified 12:00:00 AM [facility] Care) J30.9 Allergic rhinitis, Allergic rhinitis, Problem 9 eCW3 ([facility] cause unspecified cause unspecified 12:00:00 AM [facility] EDT Care) R10.31 Abdominal pain, Abdominal pain, Problem 10/16/2018 eCW3 ([facility] right lower right lower 12:00:00 AM [facility] quadrant quadrant EDT Care) M81.0 Osteoporosis, Osteoporosis, Problem 10/16/2018 eCW3 ([facility] unspecified unspecified 12:00:00 AM [facility] EDT Care) M75.100 Rotator cuff dis Rotator cuff dis Problem 10/16/2018 eC W3 ([facility] NEC NEC 12:00:00 AM [facility] EDT Care) R10.31 Abdominal pain, Abdominal pain, Problem 10/16/2018 eCW3 ([facility] right lower right lower 12:00:00 AM [facility] quadrant quadrant EDT Care) M81.0 Osteoporosis, Osteoporosis, Problem 10/16/2018 eCW3 ([facility] unspecified unspecified 12:00:00 AM [facility] EDT Care) M75.100 Rotator cuff dis Rotator cuff dis Problem 10/16/2018 eC W3 ([facility] NEC NEC 12:00:00 AM [facility] EDT Care) H57.9 Disorder of eye, Disorder of eye, Problem 10/16/2018 eC W3 ([facility] unspecified unspecified 12:00:00 AM [facility] EDT Care) [id number] Essential Essential Problem 02/04/2018 MEDENT hypertension hypertension 12:00:00 AM (Digestiv e (disorder) [facility] Disease & Nutrition [facility]) [id number] Body mass index Body mass index Problem 02/03/2018 MEDE NT 25-29 - overweight 25-29 - overweight 12:00:00 AM (Digestive (finding) EDT Disease & Nutrition [facility]) [id number] Dietary management Dietary management Problem 8 MEDENT surveillance surveillance 12:00:00 AM (Digestiv e (regime/therapy) ED Disease & Nutrition [facility]) [id number] Overweight Overweight Problem 02/03/2018 MEDENT (finding) 12:00:00 AM (Digestive T Disease & Nutrition [facility]) M25.562 Pain in left knee Pain in left knee Problem 12/24/2017 eCW3 ([facility] 12:00:00 AM [facility] EDT Care) M25.562 Pain in left knee Pain in left knee Problem 12/24/2017 eCW3 ([facility] 12:00:00 AM [facility] EDT Care) E03.9 Hypothyroidism Hypothyroidism, Problem 09/24/2017 eCW3 ([facility] unspecified 12:00:00 AM [facility] EDT Care) E03.9 Hypothyroidism Hypothyroidism, Problem 09/24/2017 eCW3 ([facility] unspecified 12:00:00 AM [facility] EDT Care) F41.9 Anxiety Anxiety Problem 09/10/2017 eCW3 ([facility] 12:00:00 AM [facility] EDT Care) F41.9 Anxiety Anxiety Problem 09/10/2017 eCW3 ([facility] 12:00:00 AM [facility] EDT Care) 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 Problem 04/02/2017 eCW3 ([facility] parathyroid gland abnormality 12:00:00 AM [facility] EDT Care) 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 Problem 04/02/2017 eCW3 ([place] parathyroid gland abnormality 12:00:00 AM [facility] EDT Care) I10 Hypertension HTN (hypertension) Problem 11/05/2016 eCW3 ([facility] 12:00:00 AM [facility] EDT Care) I10 Hypertension HTN (hypertension) Problem 11/05/2016 eCW3 ([facility] 12:00:00 AM [facility] EDT Care) 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 eCW3 ([facility] carcinoma in situ) carcinoma in situ) 12:00:00 AM [facility] EDT Care) 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 eCW3 ([facility] carcinoma in situ) carcinoma in situ) 12:00:00 AM [facility] EDT Care) R92.2 Inconclusive Inconclusive Problem 08/26/2015 eCW3 ([facility] mamm[facility] mammogram 12:00:00 AM [facility] EST Care) R92.2 Inconclusive Inconclusive Problem 08/26/2015 eCW3 ([facility] mamm[facility] mammogram 12:00:00 AM [facility] EST Care) M53.82 Musculoskeletal Musculoskeletal Problem eCW3 ([facility] disorder involving disorder involving [facility] posterior cervical posterior cervical Care) region region M53.82 Musculoskeletal Musculoskeletal Problem eCW3 ([place] disorder involving disorder involving [facility] posterior cervical posterior cervical Care) region region Surgeries/Procedures Procedure Description Date Indications Data Source(s) ECG ROUTINE ECG 08/21/2018 MEDENT (Dige stive W/LEAST 12 LDS W/I&R 12:00:00 AM EST Dise ase & Nutrition [facility]) ECG ROUTINE ECG 02/03/2018 MEDENT (Dige stive W/LEAST 12 LDS W/I&R 12:00:00 AM EDT Dise ase & Nutrition [facility]) Results ID Date Data Source [id number] 12/11/2019 12:00:00 AM EDT [facility] Name Value Range Interpretation Code Description Data Марина rce(s) Supporting Document(s ) 2019[facility]nCoV [facility] RNA XXX CHRISTIANO+probe- Imp This lab was ordered by [facility] GONZALEZ and reported by [employer]. ID Date Data Source [id number] 08/21/2018 10:12:00 AM EST MEDENT ([facility] Disease & Nutrition [facility]) Name Value Range Interpretation Description Data Sup porting Code Source(s) Document(s ) Hemoglobin <pending> Normal (applies to MEDENT A1c/Hemoglobin non-numeric (Digestive .total in results) Disease & Blood Nutrition [facility]) ID Date Data Source [id number] 05/21/2018 05:11:00 PM EST MEDENT ([facility] & Nutrition [facility]) Name Value Range Interpretation Description Data Sup porting Code Source(s) Document(s ) Leukocytes 3.8 3.8-10.8 Normal (applies MEDENT [#/volume] in thous/uL to non-numeric (Digestive Blood by results) Disease & Automated count Nutrition [facility] ) Erythrocytes 4.08 3.8-5.1 Normal (applies MEDENT [#/volume] in mill/uL to non-numeric (Digestive Blood by results) Disease & Automated count Nutrition [facility] ) Hematocrit 39.1 % 35-45 Normal (applies MEDENT [Volume to non-numeric (Digestive Fraction] of results) Disease & Blood by Nutrition Automated count [facility] ) Hemoglobin 13.1 11.7-15. Normal (applies MEDENT [Mass/volume] in g/dL 5 to non-numeric (Digesti ve Blood results) Disease & Nutrition [facility] ) Erythrocyte mean 32.0 pg 27-33 Normal (applies MEDENT corpuscular to non-numeric (Digestive hemoglobin results) Disease & [Entitic mass] Nutrition by Automated [facility] [place] ) Erythrocyte mean 95.9 fL 80-100 Normal (applies MEDENT corpuscular to non-numeric (Digestive volume [Entitic results) Disease & volume] by Nutrition Automated count [facility] ) Erythrocyte mean 33.4 32-36 Normal (applies MEDENT corpuscular g/dL to non-numeric (Digestive hemoglobin results) Disease & concentration Nutrition [Mass/volume] by Center of [facility] [place] ) Erythrocyte 13.4 % 11-15 Normal (applies MEDENT distribution to non-numeric (Digestive width [Ratio] by results) Disease & Automated count Nutrition [facility] ) Platelets 144 140-400 Normal (applies MEDENT [#/volume] in thous/uL to non-numeric (Digestive Blood by results) Disease & Automated count Nutrition [facility] ) Platelet mean 11.8 fL 7.5-12.5 Normal (applies MEDENT volume [Entitic to non-numeric (Digestiv e volume] in Blood results) Disease & by [facility] ) ID Date Data Source [id number] 05/21/2018 05:11:00 PM EST MEDENT (Diges tive Disease & Nutrition [facility]) Name Value Range Interpretation Description Data Sup porting Code Source(s) Document(s ) Glucose 82 mg/dL 65-139 Normal (applies to MEDENT [Mass/volum non-numeric (Digestive e] in Serum results) Disease & or Plasma Nutrition [facility]) <content>For the purpose of screening fo r the presence of diabetes:</content>
<content></content>
<content></content>
<content ><5.7% Consistent with the absence of diabetes< /content>
<content>5.7-6.4% Consistent with increased risk for diabetes</content>
<content>(prediab etes)</content>
<content>>or=6.5% Consistent with diabetes</content>
<content></c ontent>
<content>This assay result is consistent with decreased risk of</content>
<content>diabetes.</content>
<content></content>
<nicola nt>Currently, no consensus exists for use of hemoglobi n A1c</content>
<content>for diagnosis of diabetes in children.</content>
<content></co ntent>
<content>According to [place] [employer] (ADA)</content>
<content >guidelines, hemoglobin A1c <7.0% represents optimal control</content>
<content>in non-pr egnant diabetic patients. Different metrics may</content>
<content>apply to spec amg specialty hospital patient populations. Standards of</content>
<content>Medical Care i n Diabetes(ADA).</content>
<content></content> Potassium 5.3 mmol/L 3.5-5.3 Normal (applies to MEDENT (Di gestive [Moles/volume] in non-numeric Disease & Nutrition Serum or Plasma results) [facility]) Sodium [Moles/volume] 139 mmol/L 135-146 Normal (applies to MEDENT (Digestive in Serum or Plasma non-numeric Disease & Nutrition results) [facility]) Chloride 103 mmol/L 98-110 Normal (applies to MEDENT (Di gestive [Moles/volume] in non-numeric Disease & Nutrition Serum or Plasma results) [facility]) Carbon dioxide, total 27 mmol/L 20-32 Normal (applies to MEDENT (Digestive [Moles/volume] in non-numeric Disease & Nutrition Serum or Plasma results) [facility]) Creatinine 1.00 mg/dL 0.5-0.99 Above high normal MEDENT (Di gestive [Mass/volume] in Serum Disease & Nutrition or Plasma [facility]) The upper reference limit for Creatinine is approximately 13% higher for people identified as Afri can-[place]olan. Urea nitrogen/Creatinine 18 (calc) 6-22 Normal (applies MEDENT (Digestive [Mass Ratio] in Serum or to non-numeric Disease & Plasma results) Nutrition [facility]) Urea nitrogen 18 mg/dL 7-25 Normal (applies MEDENT (Di gestive [Mass/volume] in Serum or to non-numeric Disease & Plasma results) Nutrition [facility]) Calcium [Mass/volume] in 9.2 mg/dL 8.6-10.4 Normal (applies MEDENT (Digestive Serum or Plasma to non-numeric Disease & results) [facility]) Protein [Mass/volume] in 7.1 g/dL 6.1-8.1 Normal (applies MEDENT (Digestive Serum or Plasma to non-numeric Disease & results) Nutrition [facility]) Globulin [Mass/volume] in 3.1 1.9-3.7 Normal (applies MEDENT (Digestive Serum by calculation g/dL(calc) to non-numeric Dis ease & results) [facility]) Albumin [Mass/volume] in 4.0 g/dL 3.6-5.1 Normal (applies MEDENT (Digestive Serum or Plasma to non-numeric Disease & results) [facility]) Bilirubin.total 0.3 mg/dL 0.2-1.2 Normal (applies MEDENT ( Digestive [Mass/volume] in Serum or to non-numeric Disease & Plasma results) [facility]) Albumin/Globulin [Mass 1.3 (calc) 1-2.5 Normal (applies MEDENT (Digestive Ratio] in Serum or Plasma to non-numeric Disease & results) [facility]) Alkaline phosphatase 46 U/L 33-130 Normal (applies MED ENT (Digestive [Enzymatic to non-numeric Disease & activity/volume] in Serum results) Nutr ition Center or Plasma of [place]) Aspartate 19 U/L 10-35 Normal (applies MEDENT (Digest rachel aminotransferase to non-numeric Disease & [Enzymatic results) Nutrition [place] activity/volume] in Serum of [facility]) or Plasma Laboratory test finding 59 Below low normal MEDENT (Digestive (navigational concept) mL/min/1.73m Dise ase & 2 Nutrition [facility]) Alanine aminotransferase 15 U/L 6-29 Normal (applies MEDENT (Digestive [Enzymatic to non-numeric Disease & activity/volume] in Serum results) Nutr ition Center or [facility] [place]) Glomerular filtration 68 Normal (applies ME DENT (Digestive rate/1.73 sq M predicted mL/min/1.73m to non-numeric Disease & among blacks [Volume 2 results) Nutrition Center Rate/Area] in Serum or of [place]) Plasma by Creatinine-based formula (MDRD) ID Date Data Source [id number] 05/21/2018 05:11:00 PM EST MEDENT (Diges tive Disease & [facility] [place]) Name Value Range Interpretation Description Data Sup porting Code Source(s) Document(s ) Cholesterol 188 mg/dL Normal (applies MEDENT [Mass/volume] to non-numeric (Digestive in Serum or results) Disease & Plasma Nutrition [facility]) Cholesterol in 64 mg/dL Normal (applies MEDENT HDL to non-numeric (Digestive [Mass/volume] results) Disease & in Serum or Nutrition Plasma [facility]) Cholesterol.tot 2.9 calc Normal (applies MEDENT al/Cholesterol to non-numeric (Digestive in HDL [Mass results) Disease & Ratio] in Serum Nutrition or Plasma Center [facility]) Cholesterol in 105 mg/dL Above high normal MEDENT LDL (Digestive [Mass/volume] Disease & in Serum or Nutrition Plasma by Center of calculation [place]) <content>LDL-C is now calculated using loree Wharton calculation,</content>
<content>which is a validated novel method providing be tter accuracy</content>
<content>than the Friedewald equation in the estimation of LDL-C.</co ntent>
<content>Bossman MELÉNDEZ et al. JENNIFER. 2013; 310(19): 0058-4577</content>
<content></nicola nt>
<content>For additional information, please refer to</content>
<content>[email or web address]</cont ent>
<content>( This link is being provided for informational/educational</content>
<content>purposes only.)</content>
<content></content>
<content>Desirable range < 100 mg/dL for primary prevention; <70 mg/dL</content>
<con tent>for patients with CHD or diabetic patients with > or = 2 CHD</content>
<content>risk factor s.</content>
<content></content> Triglyceride 99 mg/dL Normal (applies to MEDENT ( Digestive [Mass/volume] in Serum non-numeric results) Disease & Nutrition or Plasma [facility]) Cholesterol non HDL 124 mg/dL(calc) Normal (applies to MEDENT (Digestive [Mass/volume] in Serum non-numeric results) Disease & Nutrition or Plasma [facility]) <content>For patients with diabetes plus 1 major ASCVD risk</content>
<content>factor, lee ann ting to a non-HDL-C goal of <100 mg/dL</content>
<content>(LDL-C of < 70 mg/dL) is considered a therapeutic</content>
<content>optio n.</content>
<content></content> ID Date Data Source [id number] 05/21/2018 05:11:00 PM EST MEDENT (Diges tive Disease & Nutrition [facility]) Name Value Range Interpretation Description Data Sup porting Code Source(s) Document(s ) Hemoglobin 5.3 Normal (applies to MEDENT A1c/Hemoglobin %oftotalH non-numeric (Digestive .total in gb results) Disease & Blood Nutrition [facility]) <content>For the purpose of screening fo r the presence of diabetes:</content>
<content></content>
<content></content>
<content ><5.7% Consistent with the absence of diabetes< /content>
<content>5.7-6.4% Consistent with increased risk for diabetes</content>
<content>(prediab etes)</content>
<content>>or=6.5% Consistent with diabetes</content>
<content></c ontent>
<content>This assay result is consistent with decreased risk of</content>
<content>diabetes.</content>
<content></content>
<nicola nt>Currently, no consensus exists for use of hemoglobi n A1c</content>
<content>for diagnosis of diabetes in children.</content>
<content></co ntent>
<content>According to [place] [employer] (ADA)</content>
<content >guidelines, hemoglobin A1c <7.0% represents optimal control</content>
<content>in non-pr egnant diabetic patients. Different metrics may</content>
<content>apply to spec amg specialty hospital patient populations. Standards of</content>
<content>Medical Care i n Diabetes(ADA).</content>
<content></content> Laboratory test finding SEE NOTE Normal (applies to MEDENT (Digestive (navigational concept) non-numeric results) Disease & Nutrition Center [facility] r) Whole blood, unspun or partially spun ge l barrier tube was received 6 or more hours after colle ction. A false elevation of K, Phosphorus and LD as wel l as a false decrease in glucose may occur due to prolonged co ntact with red cells. ID Date Data Source [id number] 02/03/2018 12:49:00 PM EDT MEDENT (Diges tive Disease & Nutrition [facility]) Name Value Range Interpretation Description Data Sup porting Code Source(s) Document(s ) Leukocytes 3.4 3.8-10.8 Below low normal MEDENT [#/volume] in thous/uL (Digestive Blood by Disease & Automated count Nutrition [facility] ) Erythrocytes 3.79 3.8-5.1 Below low normal MEDENT [#/volume] in mill/uL (Digestive Blood by Disease & Automated count Nutrition [facility] ) Hemoglobin 12.2 11.7-15. Normal (applies MEDENT [Mass/volume] in g/dL 5 to non-numeric (Digesti ve Blood results) Disease & Nutrition [facility] ) Hematocrit 37.2 % 35-45 Normal (applies MEDENT [Volume to non-numeric (Digestive Fraction] of results) Disease & Blood by Nutrition Automated count [facility] ) Erythrocyte mean 98.1 fL 80-100 Normal (applies MEDENT corpuscular to non-numeric (Digestive volume [Entitic results) Disease & volume] by Nutrition Automated count [facility] ) Erythrocyte mean 32.3 pg 27-33 Normal (applies MEDENT corpuscular to non-numeric (Digestive hemoglobin results) Disease & [Entitic mass] Nutrition by Automated Center of count [place] ) Erythrocyte 14.8 % 11-15 Normal (applies MEDENT distribution to non-numeric (Digestive width [Ratio] by results) Disease & Automated count Nutrition [facility] ) Erythrocyte mean 32.9 32-36 Normal (applies MEDENT corpuscular g/dL to non-numeric (Digestive hemoglobin results) Disease & concentration Nutrition [Mass/volume] by Center of Automated count [place] ) Platelets 136 140-400 Below low normal MEDENT [#/volume] in thous/uL (Digestive Blood by Disease & Automated count Nutrition [facility] ) Platelet mean 11.6 fL 7.5-12.5 Normal (applies MEDENT volume [Entitic to non-numeric (Digestiv e volume] in Blood results) Disease & by [place] Nutrition [facility] ) ID Date Data Source [id number] 02/03/2018 12:49:00 PM EDT MEDENT (Diges tive Disease & Nutrition [facility]) Name Value Range Interpretation Description Data Sup porting Code Source(s) Document(s ) Glucose 86 mg/dL 65-139 Normal (applies to MEDENT [Mass/volum non-numeric (Digestive e] in Serum results) Disease & or Plasma Nutrition [facility]) <content>For the purpose of screening fo r the presence of diabetes:</content>
<content></content>
<content></content>
<content ><5.7% Consistent with the absence of diabetes< /content>
<content>5.7-6.4% Consistent with increased risk for diabetes</content>
<content>(prediab etes)</content>
<content>>or=6.5% Consistent with diabetes</content>
<content></c ontent>
<content>This assay result is consistent with decreased risk of</content>
<content>diabetes.</content>
<content></content>
<nicola nt>Currently, no consensus exists for use of hemoglobi n A1c</content>
<content>for diagnosis of diabetes in children.</content>
<content></co ntent>
<content>According to [place] Diabetes [employer] (ADA)</content>
<content >guidelines, hemoglobin A1c <7.0% represents optimal control</content>
<content>in non-pr egnant diabetic patients. Different metrics may</content>
<content>apply to spec amg specialty hospital patient populations. Standards of</content>
<content>Medical Care i n Diabetes(ADA).</content>
<content></content> Potassium 4.1 mmol/L 3.5-5.3 Normal (applies to MEDENT (Di gestive [Moles/volume] in non-numeric Disease & Nutrition Serum or Plasma results) [facility]) Chloride 103 mmol/L 98-110 Normal (applies to MEDENT (Di gestive [Moles/volume] in non-numeric Disease & Nutrition Serum or Plasma results) [facility]) Sodium [Moles/volume] 142 mmol/L 135-146 Normal (applies to MEDENT (Digestive in Serum or Plasma non-numeric Disease & Nutrition results) [facility]) Carbon dioxide, total 30 mmol/L 20-32 Normal (applies to MEDENT (Digestive [Moles/volume] in non-numeric Disease & Nutrition Serum or Plasma results) [facility]) Urea nitrogen 18 mg/dL 7-25 Normal (applies to MEDENT (Digestive [Mass/volume] in Serum non-numeric Disea se & Nutrition or Plasma results) [facility]) Creatinine 0.87 mg/dL 0.5-0.99 Normal (applies to MEDENT (D igestive [Mass/volume] in Serum non-numeric Disea se & Nutrition or Plasma results) [facility]) The upper reference limit for Creatinine is approximately 13% higher for people identified as Afri can-[place]. Urea nitrogen/Creatinine NOTE (calc) 6-22 Normal (applies to MEDENT (Digestive [Mass Ratio] in Serum or non-numeric Dis ease & Nutrition Plasma results) [facility]) Bun/Creatinine ratio is not reported whe n the Bun and Creatinine values are within normal limi ts. Calcium [Mass/volume] 9.1 mg/dL 8.6-10.4 Normal (applies to MEDENT (Digestive in Serum or Plasma non-numeric Disease & Nutrition results) [facility]) Protein [Mass/volume] 6.7 g/dL 6.1-8.1 Normal (applies to MEDENT (Digestive in Serum or Plasma non-numeric Disease & Nutrition results) [facility]) Albumin/Globulin [Mass 1.3 (calc) 1-2.5 Normal (applies to MEDENT (Digestive Ratio] in Serum or non-numeric Disease & Nutrition Plasma results) [facility]) Albumin [Mass/volume] 3.8 g/dL 3.6-5.1 Normal (applies to MEDENT (Digestive in Serum or Plasma non-numeric Disease & Nutrition results) [facility]) Globulin [Mass/volume] 2.9 1.9-3.7 Normal (applies to MEDENT (Digestive in Serum by calculation g/dL(calc) non-numeric Dis ease & Nutrition results) [facility]) Bilirubin.total 0.4 mg/dL 0.2-1.2 Normal (applies to MEDEN T (Digestive [Mass/volume] in Serum non-numeric Disea se & Nutrition or Plasma results) [facility]) Alkaline phosphatase 39 U/L 33-130 Normal (applies to MEDENT (Digestive [Enzymatic non-numeric Disease & Nutriti on activity/volume] in results) Center of Serum or Plasma [place]) Alanine 39 U/L 6-29 Above high normal MEDENT (Dige stive aminotransferase Disease & Nut rition [Enzymatic Center of activity/volume] in [facility]) Serum or Plasma Aspartate 45 U/L 10-35 Above high normal MEDENT (Dige stive aminotransferase Disease & Nut rition [Enzymatic Center of activity/volume] in [facility]) Serum or Plasma Glomerular filtration 69 Normal (applies to MEDENT (Digestive rate/1.73 sq mL/min/1.73m non-numeric Disease & Nu trition M.predicted [Volume 2 results) Center of Rate/Area] in Serum or [facility]) Plasma by Creatinine-based formula (MDRD) Glomerular filtration 80 Normal (applies to MEDENT (Digestive rate/1.73 sq M mL/min/1.73m non-numeric Disease & Nutrition predicted among blacks 2 results) [place] of [Volume Rate/Area] in [facility]) Serum or Plasma by Creatinine-based formula (MDRD) ID Date Data Source [id number] 02/03/2018 12:49:00 PM EDT MEDENT (Diges tive Disease & Nutrition [facility]) Name Value Range Interpretation Description Data Sup porting Code Source(s) Document(s ) Cholesterol 180 Normal (applies MEDENT [Mass/volume] in mg/dL to non-numeric (Digesti ve Serum or Plasma results) Disease & Nutrition [facility]) Cholesterol in 59 mg/dL Normal (applies MEDENT HDL to non-numeric (Digestive [Mass/volume] in results) Disease & Serum or Plasma Nutrition [facility]) Cholesterol.tota 3.1 calc Normal (applies MEDENT l/Cholesterol in to non-numeric (Digesti ve HDL [Mass Ratio] results) Disease & in Serum or Nutrition Plasma [facility]) Triglyceride 157 Above high normal MEDENT [Mass/volume] in mg/dL (Digestive Serum or Plasma Disease & Nutrition [facility]) Cholesterol in 96 mg/dL Normal (applies MEDENT LDL to non-numeric (Digestive [Mass/volume] in results) Disease & Serum or Plasma Nutrition by calculation [facility]) <content>LDL-C is now calculated using loree Wharton calculation,</content>
<content>which is a validated novel method providing be tter accuracy</content>
<content>than the Friedewald equation in the estimation of LDL-C.</co ntent>
<content>Bossman MELÉNDEZ et al. JENNIFER. 2013; 310(19): 7025-5964</content>
<content></nicola nt>
<content>For additional information, please refer to</content>
<content>[email or web address]</cont ent>
<content>( This link is being provided for informational/educational</content>
<content>purposes only.)</content>
<content></content>
<content>Desirable range < 100 mg/dL for primary prevention; <70 mg/dL</content>
<con tent>for patients with CHD or diabetic patients with > or = 2 CHD</content>
<content>risk factor s.</content>
<content></content> Cholesterol non HDL 121 mg/dL(calc) Normal (applies to MEDENT (Digestive [Mass/volume] in Serum non-numeric results) Disease & Nutrition or Plasma [facility]) <content>For patients with diabetes plus 1 major ASCVD risk</content>
<content>factor, lee ann ting to a non-HDL-C goal of <100 mg/dL</content>
<content>(LDL-C of < 70 mg/dL) is considered a therapeutic</content>
<content>optio n.</content>
<content></content> ID Date Data Source [id number] 02/03/2018 12:49:00 PM EDT MEDENT ([facility] & Nutrition [facility]) Name Value Range Interpretation Description Data Sup porting Code Source(s) Document(s ) Thyroxine (T4) 10.3 5.1-11. Normal (applies MEDENT [Mass/volume] in ug/dL 9 to non-numeric (Digesti ve Serum or Plasma results) [facility] & Nutrition [facility] ) Triiodothyronine 28 % 22-35 Normal (applies MEDENT resin uptake (T3RU) to non-numeric (Dige stive in Serum or Plasma results) Disease & Nutrition [facility] ) Thyrotropin 1.74 0.4-4.5 Normal (applies MEDENT [Units/volume] in mIU/L to non-numeric (Digest rachel Serum or Plasma results) Disease & Nutrition [facility] ) Thyroxine (T4) free 2.9 1.4-3.8 Normal (applies MEDE NT index in Serum or to non-numeric (Digest rachel Plasma by results) [facility] & calculation Nutrition [facility] ) ID Date Data Source [id number] 02/03/2018 12:49:00 PM EDT MEDENT ([facility] & Nutrition [facility]) Name Value Range Interpretation Description Data Sup porting Code Source(s) Document(s ) Hemoglobin 5.3 Normal (applies to MEDENT A1c/Hemoglobin %oftotal non-numeric (Digestive .total in gb results) Disease & Blood Nutrition [facility]) <content>For the purpose of screening fo r the presence of diabetes:</content>
<content></content>
<content></content>
<content ><5.7% Consistent with the absence of diabetes< /content>
<content>5.7-6.4% Consistent with increased risk for diabetes</content>
<content>(prediab etes)</content>
<content>>or=6.5% Consistent with diabetes</content>
<content></c ontent>
<content>This assay result is consistent with decreased risk of</content>
<content>diabetes.</content>
<content></content>
<nicola nt>Currently, no consensus exists for use of hemoglobi n A1c</content>
<content>for diagnosis of diabetes in children.</content>
<content></co ntent>
<content>According to [place] [employer] (ADA)</content>
<content >guidelines, hemoglobin A1c <7.0% represents optimal control</content>
<content>in non-pr egnant diabetic patients. Different metrics may</content>
<content>apply to spec amg specialty hospital patient populations. Standards of</content>
<content>Medical Care i n Diabetes(ADA).</content>
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[employer] MEDENT (Digest rachel Disease & Nutrition [facility] ) ETOH Use Denies alcohol completed Denies alcohol use ME DENT (Digestive use Disease & Nutrition [facility] ) Denies Tobacco completed Denies Tobacco Use ME DENT (Digestive Use Disease & Nutrition [facility] ) Vital Signs ID Date Data Source UNK Name Value Range Interpretation Code Description Data Source(s) Diastolic blood 75 mm[Hg] 75 mm[Hg] eCW3 ([facility]) Systolic blood 145 mm[Hg] 145 mm[Hg] eCW3 ([facility]) Body temperature 98.0 [degF] 98.0 [degF] eCW3 ( [facility]) Heart rate 20 /min 20 /min eCW3 ([facility]) Body mass index 29.81 kg/m2 29.81 kg/m2 eCW3 ([place] [facility] (BMI) [Ratio] [facility]) Body weight 163 [lb_av] 163 [lb_av] eCW3 ([facility]) Body height 62 [in_i] 62 [in_i] eCW3 ([facility]) Diastolic blood 73 mm[Hg] 73 mm[Hg] eCW3 ([facility]) Systolic blood 127 mm[Hg] 127 mm[Hg] eCW3 ([facility]) Body temperature 97.8 [degF] 97.8 [degF] eCW3 ( [facility]) Heart rate 20 /min 20 /min eCW3 ([facility]) Body mass index 28.90 kg/m2 28.90 kg/m2 eCW3 ([place] (BMI) [Ratio] [facility]) Body weight 158 [lb_av] 158 [lb_av] eCW3 ([facility]) Body height 62 [in_i] 62 [in_i] eCW3 ([facility]) Systolic blood 122 mm[Hg] 122 mm[Hg] MEDENT pressure (Digestive Disease & Nutrition [facility] ) Diastolic blood 76 mm[Hg] 76 mm[Hg] MEDENT pressure (Digestive Disease & Nutrition [facility] ) Heart rate 78 /min 78 /min MEDENT (Digestive Disease & Nutrition [facility] ) Respiratory rate 13 /min 13 /min MEDENT (Digestive Disease & Nutrition [facility] ) Body height 64 [in_i] 64 [in_i] MEDENT (Digestive Disease & Nutrition [facility] ) 5'4" Body weight 160.00 [lb_av] 160.00 [lb_av] MEDEN T (Digestive Disease & Nutrition [facility]) Body mass index (BMI) 27.5 kg/m2 27.5 kg/m2 MED ENT (Digestive Disease [Ratio] & Nutrition [facility]) Systolic blood pressure 126 mm[Hg] 126 mm[Hg] M EDENT (Digestive Disease & Nutrition [facility]) Diastolic blood pressure 80 mm[Hg] 80 mm[Hg] MEDENT (Digestive Disease & Nutrition [facility]) Heart rate 70 /min 70 /min MEDENT (Digest rachel Disease & Nutrition [facility]) Respiratory rate 13 /min 13 /min MEDENT ( Digestive Disease & Nutrition [facility]) Body height 64 [in_i] 64 [in_i] MEDENT (Diges tive Disease & Nutrition [facility]) 5'4" Body weight 154.00 [lb_av] 154.00 [lb_av] MEDEN T (Digestive Disease & Nutrition [facility]) Body mass index (BMI) 26.4 kg/m2 26.4 kg/m2 MED ENT (Digestive Disease [Ratio] & Nutrition [facility]) Systolic blood pressure 132 mm[Hg] 132 mm[Hg] M EDENT (Digestive Disease & Nutrition [facility]) Diastolic blood pressure 70 mm[Hg] 70 mm[Hg] MEDENT (Digestive Disease & Nutrition [facility]) Heart rate 77 /min 77 /min MEDENT (Digest rachel Disease & Nutrition [facility]) Respiratory rate 13 /min 13 /min MEDENT ( Digestive Disease & Nutrition [facility]) Body height 64 [in_i] 64 [in_i] MEDENT (Diges tive Disease & Nutrition [facility]) 5'4" Body weight 157.00 [lb_av] 157.00 [lb_av] MEDEN T (Digestive Disease & Nutrition [facility]) Body mass index (BMI) 26.9 kg/m2 26.9 kg/m2 MED ENT (Digestive Disease [Ratio] & Nutrition [facility]) Systolic blood pressure 120 mm[Hg] 120 mm[Hg] M EDENT (Digestive Disease & Nutrition [facility]) Diastolic blood pressure 78 mm[Hg] 78 mm[Hg] MEDENT (Digestive Disease & Nutrition [facility]) Heart rate 69 /min 69 /min MEDENT (Digest rachel Disease & Nutrition [facility]) Respiratory rate 13 /min 13 /min MEDENT ( Digestive Disease & Nutrition [facility]) Body height 64 [in_i] 64 [in_i] MEDENT (Diges tive Disease & Nutrition [facility]) 5'4" Body weight 160.00 [lb_av] 160.00 [lb_av] MEDEN T (Digestive Disease & Nutrition [facility]) Body mass index (BMI) 27.5 kg/m2 27.5 kg/m2 MED ENT (Digestive Disease [Ratio] & Nutrition [facility]) Systolic blood pressure 120 mm[Hg] 120 mm[Hg] M EDENT (Digestive Disease & Nutrition [facility]) Diastolic blood pressure 78 mm[Hg] 78 mm[Hg] MEDENT (Digestive Disease & Nutrition [facility]) Heart rate 69 /min 69 /min MEDENT (Digest rachel Disease & Nutrition [facility]) Respiratory rate 13 /min 13 /min MEDENT ( Digestive Disease & Nutrition [facility]) Body height 64 [in_i] 64 [in_i] MEDENT (Diges tive Disease & Nutrition [facility]) 5'4" Body weight 163.00 [lb_av] 163.00 [lb_av] MEDEN T (Digestive Disease & Nutrition [facility]) Body mass index (BMI) 28.0 kg/m2 28.0 kg/m2 MED ENT (Digestive Disease [Ratio] & Nutrition [facility]) Systolic blood pressure 110 mm[Hg] 110 mm[Hg] M EDENT (Digestive Disease & Nutrition [facility]) Diastolic blood pressure 70 mm[Hg] 70 mm[Hg] MEDENT (Digestive Disease & Nutrition [facility]) Heart rate 78 /min 78 /min MEDENT (Digest rachel Disease & Nutrition [facility]) Respiratory rate 13 /min 13 /min MEDENT ( Digestive Disease & Nutrition [facility]) Body height 64 [in_i] 64 [in_i] MEDENT (Diges tive Disease & Nutrition [facility]) 5'4" Body weight 171.00 [lb_av] 171.00 [lb_av] MEDEN T (Digestive Disease & Nutrition [facility]) Body mass index (BMI) 29.3 kg/m2 29.3 kg/m2 MED ENT (Digestive Disease & [Ratio] Nutrition [facility]) Patient Treatment Plan of Care Planned Activity Planned Date Details Description Data Source (s) Hydrochlorothiazide 25 MG 11/22/2015 eC W3 ([place] Oral Tablet 12:00:00 AM [facility]) Calcium + D 315-200 MG-UNIT 08/17/2014 eCW3 ([place] 12:00:00 AM [facility]) Losartan Potassium 50 MG Oral 01/20/2014 eCW3 ([place] Tablet 12:00:00 AM [facility]) Citalopram 20 MG Oral Tablet 01/13/2013 eCW3 ([place] 12:00:00 AM [facility]) Levothyroxine Sodium 0.075 MG eCW3 ([place] Oral Tablet [facility])
[2020-04-05 10:55] VITALS: BMI 29.5
--- OUTSIDE RECORDS SUMMARY | 2020-04-06 04:42 | XMS ---
:1950 Author Organization [facility] Support Name Relationship Address Phone ALL [facility] Unavailable [address] [place] [address] [place] [address] AMY TOURE SON [address] [phone] [place] [address] JAMESON TOURE DAUGHTER [address] [place] [address] jameson toure Unavailable [address] [phone] [place] [address] Re-disclosure Warning The records that you are [...] is protected by Article 27-F of the [facility] Public Health law. If you continue you may haveaccess to information: Regarding HIV / AIDS; Provided by facilities licensed or operated by the [facility] Office of Mental Health; or Provided by the [facility] Office for People With Developmental Disabilities. If such information is present, then the following [facility] mandated warning applies: This information has been [...] law may result in a fine or long-term sentence or both. A general authorization for the release of medical or other information is NOT sufficient authorization for further disclosure. Family History Family Member Family Member Family Member Date of Description Data Source(s) Name Gender Status Status Unknown Female Problem MEDENT (Digestive Disease & Nutrition [facility] ) Encounters Encounter Providers Location Date Indications Data Source(s ) (NBillable) [facility] 04/29/2019 eCW3 ([facility] A28 12:00:00 AM [facility] ng/Care Management EST - Care) 04/29/2019 12:00:00 AM EST Outpatient [facility] 02/24/2019 eCW3 ([facility] on Care [facility] A28 12:00:00 AM [facility] EDT - Care) 02/24/2019 12:00:00 AM EDT Outpatient [facility] 02/19/2019 eCW3 ([facility] A28 12:00:00 AM [facility]T - Care) 02/19/2019 12:00:00 AM EDT Immunizations Vaccine Date Status Description Data Source(s) pneumococcal 09/01/2019 completed eCW3 ([facility] polysaccharide PPV23 10:53:00 AM EDT [facility] Care) pneumococcal 09/01/2019 completed eCW3 ([facility] polysaccharide PPV23 10:53:00 AM EDT [facility]al [facility] Care) New in 2011. IIV4 02/19/2019 completed eCW3 ([facility] 12:30:00 PM EDT Health Care) New in 2011. IIV4 02/19/2019 completed eCW3 ([facility] 12:30:00 PM EDT Health Care) New in 2011. IIV4 02/19/2019 completed eCW3 ([facility] 12:30:00 PM EDT Health Care) Medications Medication Brand Start Product Dose Route Administrative Pharmacy [facility] Indications Reaction Description Data Name Date Form Instructions Instructions Source(s) Loratadine Lorata 12/09/ 1.0 active Loratadi ne eCW3 10 MG Oral dine 2020 {tabl 10 MG ([place] Tablet 10 MG 12:00: et} [facility] 00 AM Health EDT Care) Fluticasone Flutic .0 active Flutica sone eCW3 Propionate asone 2020 {spra Propionate ( [place] 50 MCG/ACT Propio 12:00: y_in_ 50 MCG/AC T [facility]ler 00 AM each_ [place] [id number] EDT nostr Care) MCG/AC il} T Fluticasone Flutic .0 active Flutica sone eCW3 Propionate asone 2020 {spra Propionate ( [place] 50 MCG/ACT Propio 12:00: y_in_ 50 MCG/AC T [place] [address] EDT nostr Care) MCG/AC il} T Ketotifen Ketoti 12/09/ active Ketotifen eCW3 0.25 MG/ML fen 2020 Fumarate ([facility] Fumara 12:00: 0.025 % Ri meeta Solution te 00 AM [facility] Ketotif 0.[facility] EDT [facility]) Fumarate % 0.025 % Ketotifen Ketoti 12/09/ active Ketotifen eCW3 0.25 MG/ML fen 2020 Fumarate ([facility] Fum[facility] 12:00: 0.025 % Ri meeta Solution te 00 AM [facility] Ketotif 0.[facility] EDT [facility]) Fumarate % 0.025 % Ketotifen Ketoti 12/09/ active Ketotifen eCW3 0.25 MG/ML fen 2020 Fumarate ([facility] Fumara 12:00: 0.025 % Ri meeta Solution te 00 AM [facility] Ketotif 0.[facility] EDT [facility]) Fumarate % 0.025 % Fluticasone Flutic .0 active Flutica sone eCW3 Propionate asone 2020 {spra Propionate ( [place] 50 MCG/ACT Propio 12:00: y_in_ 50 MCG/AC T [facility] [place] [address] EDT nostr Care) MCG/AC il} T Loratadine Lorata .0 active Loratadi ne eCW3 10 MG Oral dine 2020 {tabl 10 MG ([place] Tablet 10 MG 12:00: et} [facility] 00 AM Health EDT Care) Loratadine Lorata .0 active Loratadi ne eCW3 10 MG Oral dine 2019 {tabl 10 MG ([place] Tablet 10 MG 12:00: et} [facility] 00 AM Health EDT Care) meloxicam Meloxi 1.0 suspend Meloxica m 15 eCW3 15 MG [...] 00 AM Health 15 MG EDT Care) Insurance Providers Payer name Policy type / Policy ID Covered Covered alliance party's Policy Plan Coverage type alliance party ID relationship to Perez Information perez PROTECTIVE [id number] SP [id number] INS AETNA MEBRGTNZ SP MEBRGTNZ MEDICARE Steve Care Commercial [id number] Self [id number] Medicare Medicaid [facility] Part [id number] Self [id number] B Aet[employer] Commercial MEBRGTNZ Self [id number] Medicare Ppo Problems, Conditions, and Diagnoses Code Display Name Description Problem Type Effective Dates Data Source(s) M25.512 Pain in left Pain in left Problem 01/04/2020 eCW3 ([facility] shoulder shoulder 12:00:00 AM EDT [facility] Care) G89.29 Other chronic Other chronic Problem 01/04/2020 eCW3 ([facility] pain pain 12:00:00 AM EDT [facility] Care) M25.511 Pain in right Pain in right Problem 01/04/2020 eCW3 ([facility] shoulder shoulder 12:00:00 AM EDT [facility]) F32.4 Major depression Major depress, Problem 09/16/2019 eCW3 ([facility] remission F32.4 Major depression Major depress, Problem 09/16/2019 eCW3 ([facility] single episode, part remis 12:00:00 AM EDT [facility] in partial Care) remission Z68.30 Body mass index Body mass index Problem 09/12/2019 eCW3 ([place] (BMI) 30.0-30.9, (BMI) 30.0-30.9, 12:00:00 AM [facility] adult adult Care) E66.09 Other obesity due Other obesity due Problem 09/12/2019 eCW3 ([place] excess to excess 12:00:00 AM [facility] calories calories Care) E66.09 Other obesity due Other obesity due Problem 09/12/2019 eCW3 ([place] to excess to excess 12:00:00 AM [facility] calories calories Care) Z68.30 Body mass index Body mass index Problem 09/12/2019 eCW3 ([place] (BMI) 30.0-30.9, (BMI) 30.0-30.9, 12:00:00 AM [facility] adult adult Care) Results ID Date Data Source [id number] 12/11/2019 12:00:00 AM T [facility] Name Value Range Interpretation Code Description Data Марина rce(s) Supporting Document(s ) 2019-nCoV [facility] RNA XXX CHRISTIANO+probe- Imp This lab was ordered by [facility] GONZALEZ and reported by [employer] Procedure Vital Signs ID Date Data Source UNK Name Value Range Interpretation Code Description Data Source(s) Diastolic blood 75 mm[Hg] 75 mm[Hg] eCW3 ([facility]) Systolic blood 145 mm[Hg] 145 mm[Hg] eCW3 ([facility]) Body temperature 98.0 [degF] 98.0 [degF] eCW3 ( [facility]) Heart rate 20 /min 20 /min eCW3 ([facility]) Body mass index 29.81 kg/m2 29.81 kg/m2 eCW3 ([facility] (BMI) [Ratio] [facility]) Body weight 163 [lb_av] 163 [lb_av] eCW3 ([facility]) Body height 62 [in_i] 62 [in_i] eCW3 ([facility])
[2020-04-06] MEDS ORDERED: LIDOCAINE HCL 1%, 10 MG/ML (20ML VIAL) ONE (07:34)
[2020-04-06] MEDS ORDERED: SUCCINYLCHOLINE CHLORIDE 200 MG/10 ML SYRINGE ONE (10:13)
[2020-04-06] MEDS ORDERED: MIDAZOLAM HCL 2 MG/2 ML SINGLE DOSE VIAL ONE (10:13)
[2020-04-06] MEDS ORDERED: PROPOFOL 20 ML ONE ×2 (10:13)
[2020-04-06] MEDS ORDERED: ceFAZolin SODIUM 1 GM VIAL IVPB ONE (10:35)
[2020-04-06] MEDS ORDERED: BUPIVACAINE HCL/PF 0.5% (5MG/ML) 10 ML VIAL IJ ONE (10:41)
[2020-04-06] MEDS ORDERED: LIDOCAINE HCL 1%, 10 MG/ML (20ML VIAL) INF ONE (10:41)
[2020-04-06] MEDS ORDERED: ONDANSETRON 4 MG/2 ML VIAL IVPUSH PRN (10:57)
[2020-04-06] MEDS ORDERED: oxyCODONE HCL 5 MG TABLET PO PRN (10:57)
[2020-04-06] MEDS ORDERED: LACTATED RINGERS SOLUTION 1,000 ML IV SCH (11:00)
--- NOTE | 2020-04-06 11:03 | OP ---
Operative Note - Note: Operative Date: 04/06/20 Pre-Operative Diagnosis: right ring finger trigger finger Operation: right ring trigger finger release Post-Operative Diagnosis: Same as Pre-op Surgeon: Ricardo Scanlon Anesthesiologist/LINE WORKER: Arelis Salazar Anesthesia: Local, MAC Estimated Blood Loss (mls): 0 Drains, Volume Out (mls): 0 Blood Volume Replaced (mls): 0 Fluid Volume Replaced (mls): 500 Operative Report Dictated: Yes
--- NOTE | 2020-04-06 11:48 | SPEC ---
DATE OF OPERATION: 04/06/2020 PREOPERATIVE DIAGNOSIS: Right ring finger trigger finger. POSTOPERATIVE DIAGNOSIS: Right ring finger trigger finger. PROCEDURE: Right ring finger trigger finger release. SURGEON: Konstantin Bautista MD FELTING MACHINE OPERATOR: None. ANESTHESIOLOGIST: Arelis Salazar MD ANESTHESIA: MAC anesthesia, local injection of 12 mL of 0.5% Marcaine, 1% lidocaine mix. DRAINS: None. COMPLICATIONS: None. SPECIMEN: None. FLUID REPLACEMENT: Plasma-Lyte 500 mL INDICATIONS: This patient is a 69-year-old female with a preoperative diagnosis of a severe recurrent painful right ring finger trigger finger. After understanding the potential risks, complications, alternatives and benefits of surgery versus nonsurgical treatment, the patient elected to undergo this procedure. PROCEDURE: The patient was brought to the operating room. IV was placed. IV sedation was given. Two grams of IV Ancef given. A tourniquet was applied to the right upper arm and the right upper extremity was prepped and draped in sterile fashion. The entire case was done under 3.8 loupe magnification. A marking pen was utilized to yesika out a longitudinal incision in an already existing skin crease at the base of the right ring finger. Then 10 mL of 0.5% Marcaine mixed with 1% lidocaine was injected in and around the incision. The right upper extremity was elevated, exsanguinated with an Esmarch bandage and the tourniquet inflated to 250 mmHg. A No. 15 scalpel blade was utilized to cut down through the skin. Subcutaneous hemostasis was achieved with the bipolar cautery. Additional dissection was done with Littler scissors until I was able to directly visualize the A1 ishmael sheath in its entirety. Self-retaining retractors were placed into the wound. A [place] elevator was used to free up the tissue on the radial side, the ulnar side distally and proximally under better visualization of A1 ishmael sheath. Next, using a fresh No. 15 scalpel blade, I excised the central one-third of the A1 ishmael sheath and passed it off the field as specimen, tendon sheath, ring finger. I then completed the release, both distally and proximally, and brought the FDS and FDP tendons out through the wound with a Ragnell retractor. There were no abnormal points of compression. I was able to move the right ring finger without the tendons bunching up at all. The area was then copiously irrigated and washed out. I then checked one more time to make sure there were no abnormal points of compression. None were seen and therefore closure was begun. One stitch using 4-0 Vicryl was used in the deep dermal layer. Skin was reapproximated with 4-0 nylon sutures in a horizontal mattress fashion. The area was then washed and dried, covered with Xeroform gauze, sterile 4 x 4's, fluffs between the fingers, Webril and Coban. The tourniquet was taken down after a total tourniquet time of 12 minutes. There were no complications during the case. The patient tolerated the procedure well and was brought to the ambulatory recovery room in stable condition. KONSTANTIN BAUTISTA M.D. [id number]
[2020-04-06 15:25] VITALS: BP 134/73; PULSE 58; TEMP 98
== END 2020-04-06 14:30 | disposition home or self-care (01) ==
LOC: JASU-SURG 04:38
PROVIDERS: ATTEND Orthopaedic Surgery
PROC: 0LN70ZZ Release Right Hand Tendon, Open Approach (ICD-10-PCS; principal; 2020-04-06 09:30)
DX: M65.341 Trigger finger, right ring finger (principal)
CPT/HCPCS: 94760

== ENCOUNTER 2021-02-21 18:45 | Emergency (ER) | payer MEDICARE, OTHER ==
[2021-02-21 19:12] VITALS: BP 140/69; PULSE 59; TEMP 98.7; BMI 28.8
[2021-02-21] MEDS ORDERED: KETOROLAC TROMETHAMINE 60 MG/2 ML VIAL IM ONE (20:02)
[2021-02-21] MEDS ORDERED: KETOROLAC TROMETHAMINE 60 MG/2 ML VIAL ONE (20:05)
[2021-02-21 20:19] LABS: BASO % 1.6 % (0-2.0); EOS % 1.2 % (0-4.5); HEMATOCRIT 37.8 % (32.4-45.2); HEMOGLOBIN 12.3 GM/dl (10.7-15.3); LYMPH % 24.5 % (8-40); MCH 31.2 pg (25.7-33.7); MCHC 32.6 g/dl (32.0-36.0); MEAN CELL VOLUME 95.8 fl (80-96); MEAN PLT VOLUME 9.6 fl (7.5-11.1); MONO % 6.6 % (3.8-10.2); NEUT % 66.1 % (42.8-82.8); PLATELET COUNT 161 10^3/uL (134-434); RBC 3.95 M/mm3 (3.60-5.2); RDW 14.3 % (11.6-15.6); WHITE BLOOD COUNT 5.4 K/mm3 (4.0-10.8)
[2021-02-21 20:35] LABS: ALBUMIN 3.7 g/dl (3.4-5.0); ALK PHOS 50 U/L (45-117); ANION GAP 10 MMOL/L (8-16); BILIRUBIN,TOTAL 0.6 mg/dl (0.2-1); CALCIUM 8.4 mg/dl (8.5-10); CHLORIDE 100 mmol/L (98-107); CO2 28 mmol/L (21-32); GLUCOSE,RANDOM 92 mg/dl (74-106); SGOT/AST 20 U/L (15-37); SGPT/ALT 20 U/L (13-61); SODIUM 138 mmol/L (136-145); TOT PROT 6.9 g/dl (6.4-8.2)
== END 2021-02-21 23:04 | disposition home or self-care (01) ==
LOC: FER 18:45
PROC: 3E0233Z Introduction of Anti-inflammatory into Muscle, Percutaneous Approach (ICD-10-PCS; principal; 2021-02-21)
DX: M79.602 Pain in left arm (principal)
CPT/HCPCS: 36415; 80053; 82550; 84484; 84550; 85025; 86140; 93005; 93971; 99285-25

== ENCOUNTER 2021-08-30 16:14 | Emergency (ER) | payer MEDICARE, OTHER ==
[2021-08-30 16:30] VITALS: TEMP 98.2
[2021-08-30] MEDS ORDERED: FAMOTIDINE 20 MG/50 ML IVPB 20 MG in PREMIX 50 IVPB ONE (16:51)
[2021-08-30] MEDS ORDERED: ONDANSETRON 4 MG/2 ML VIAL IVPB ONE (16:51)
[2021-08-30] MEDS ORDERED: MAG HYDROX/AL HYDROX/SIMETH -MYLANTA- ORAL SUSPENSION PO ONE (16:51)
[2021-08-30] MEDS ORDERED: MAG HYDROX/AL HYDROX/SIMETH 30 ML UNIT-DOSE CUP ONE (17:04)
[2021-08-30] MEDS ORDERED: ONDANSETRON 4 MG/2 ML VIAL ONE (17:04)
[2021-08-30] MEDS ORDERED: FAMOTIDINE 20 MG/50 ML IVPB 20 MG/50 ML MG IVPB ONE (17:04)
[2021-08-30 17:33] LABS: ALBUMIN 3.4 g/dl (3.4-5.0); BILIRUBIN,TOTAL 0.6 mg/dl (0.2-1); CALCIUM 8.5 mg/dl (8.5-10); CREATININE 0.9 mg/dl (0.55-1.3); TOT PROT 6.7 g/dl (6.4-8.2)
[2021-08-30 18:59] VITALS: BP 143/67; PULSE 60
[2021-08-30 19:58] LABS: BASO % 0.6 % (0-2.0); EOS % 3.7 % (0-4.5); HEMATOCRIT 34.6 % (32.4-45.2); HEMOGLOBIN 11.9 GM/dL (10.7-15.3); LYMPH % 33.4 % (8-40); MCH 33.1 pg (25.7-33.7); MCHC 34.3 g/dl (32.0-36.0); MEAN CELL VOLUME 96.3 fl (80-96); MONO % 12.2 % (3.8-10.2); NEUT % 50.1 % (42.8-82.8); PLATELET COUNT 160 10^3/uL (134-434); RBC 3.59 M/mm3 (3.60-5.2); RDW 14.5 % (11.6-15.6); WHITE BLOOD COUNT 3.2 K/mm3 (4.0-10.0)
== END 2021-08-30 21:31 | disposition home or self-care (01) ==
LOC: FER 16:14
PROC: 3E033GC Introduction of Other Therapeutic Substance into Peripheral Vein, Percutaneous Approach (ICD-10-PCS; principal; 2021-08-30)
PROC: 3E033GC Introduction of Other Therapeutic Substance into Peripheral Vein, Percutaneous Approach (ICD-10-PCS; 2021-08-30)
DX: R10.11 Right upper quadrant pain (principal)
CPT/HCPCS: 36415; 74177-TC; 76705-TC; 80053; 81003; 83690; 85025; 96374; 96375; 99285-25; Q9967

== ENCOUNTER 2021-12-03 14:09 | Emergency (ER) | payer MEDICARE, OTHER ==
[2021-12-03 14:36] VITALS: TEMP 98.7; BMI 30.5
[2021-12-03] MEDS ORDERED: METHOCARBAMOL 500 MG TABLET PO ONE (14:42)
[2021-12-03] MEDS ORDERED: LIDOCAINE 5% TOPICAL PATCH TP ONE (14:42)
[2021-12-03] MEDS ORDERED: ACETAMINOPHEN 500 MG TABLET (FP) PO ONE (14:42)
[2021-12-03] MEDS ORDERED: KETOROLAC TROMETHAMINE 30 MG/1 ML VIAL IVPUSH ONE (14:43)
[2021-12-03] MEDS ORDERED: ACETAMINOPHEN 500 MG TABLET (FP) ONE (15:05)
[2021-12-03] MEDS ORDERED: METHOCARBAMOL 500 MG TABLET ONE (15:06)
[2021-12-03] MEDS ORDERED: KETOROLAC TROMETHAMINE 15 MG/ML VIAL ONE (15:06)
[2021-12-03] MEDS ORDERED: LIDOCAINE 5% TOPICAL PATCH ONE (15:07)
[2021-12-03] MEDS ORDERED: DIPHTH,PERTUSS(ACELL),TET 0.5 ML DISP.SYRIN IM ONE ×2 (15:26→15:52)
[2021-12-03 17:02] VITALS: BP 140/70; PULSE 72
[2021-12-03] MEDS ORDERED: LIDOCAINE PATCH REMOVAL MC SCH (22:00)
== END 2021-12-03 17:23 | disposition home or self-care (01) ==
LOC: FER 14:09
PROC: 3E0234Z Introduction of Serum, Toxoid and Vaccine into Muscle, Percutaneous Approach (ICD-10-PCS; principal; 2021-12-03)
PROC: 3E0233Z Introduction of Anti-inflammatory into Muscle, Percutaneous Approach (ICD-10-PCS; 2021-12-03)
DX: M79.10 Myalgia, unspecified site (principal); R51.9 Headache, unspecified; M54.2 Cervicalgia; W19.XXXA Unspecified fall, initial encounter; Y92.9 Unspecified place or not applicable
CPT/HCPCS: 70450-TC; 72125-TC; 73030-TC-LT-FY; 73502-TC-LT-FY; 90471; 90715; 96372; 99285-25

== ENCOUNTER 2023-05-11 11:07 | Emergency (ER) | payer OTHER ==
[2023-05-11 11:44] VITALS: BP 192/96; PULSE 67; RESP 18; TEMP 98.7; BMI 28.8
[2023-05-11 12:09] LABS: HEMATOCRIT 40.1 % (32.4-45.2); HEMOGLOBIN 13.5 G/dL (10.7-15.3); MCHC 33.7 g/dl (32.0-36.0); MEAN CELL VOLUME 97.7 fl (80-96); MEAN PLT VOLUME 10.3 fl (7.5-11.1); PLATELET COUNT 153.2 10^3/uL (134-434); RDW 13.7 % (11.6-15.6); WHITE BLOOD COUNT 3.4 10^3/uL (4.0-10.8)
[2023-05-11 12:14] LABS: ALBUMIN 3.9 g/dl (3.4-5.0); BILIRUBIN,TOTAL 0.5 mg/dl (0.2-1); CALCIUM 9.3 mg/dl (8.5-10.1); CREATININE 0.8 mg/dl (0.6-1.3); POTASSIUM 3.4 mmol/L (3.5-5.1); TOT PROT 6.9 g/dl (6.4-8.2)
[2023-05-11 12:16] LABS: PLATELET ESTIMATE ADEQUATE
[2023-05-11] MEDS ORDERED: DEXAMETHASONE 4 MG TABLET (FP) PO ONE ×2 (12:27→12:48)
[2023-05-11] MEDS ORDERED: DEXAMETHASONE SOD PHOSPHATE 10 MG/1 ML VIAL ONE (12:49)
== END 2023-05-11 13:27 | disposition home or self-care (01) ==
LOC: FER 11:07
DX: J06.9 Acute upper respiratory infection, unspecified (principal); B34.9 Viral infection, unspecified; R05.9 Cough, unspecified; M54.9 Dorsalgia, unspecified; R42 Dizziness and giddiness; R07.0 Pain in throat; R07.9 Chest pain, unspecified; R06.02 Shortness of breath; R09.81 Nasal congestion; Z20.822 Contact with and (suspected) exposure to COVID-19
CPT/HCPCS: 0241U-QW; 36415; 71046-TC-FY; 80053; 84484; 85027; 93005; 99285-25

== ENCOUNTER 2023-08-09 14:59 | Emergency (ER) | payer OTHER ==
[2023-08-09 15:13] VITALS: BP 117/64; PULSE 65; RESP 17; TEMP 98; BMI 28.8
== END 2023-08-09 17:57 | disposition home or self-care (01) ==
LOC: FER 14:59
DX: R21 Rash and other nonspecific skin eruption (principal); R51.9 Headache, unspecified
CPT/HCPCS: 99283-25

== ENCOUNTER 2023-12-05 16:50 | Emergency (ER) | payer OTHER ==
[2023-12-05] MEDS ORDERED: ACETAMINOPHEN 325 MG TABLET (FP) ONE (17:13)
[2023-12-05] MEDS: ACETAMINOPHEN 500 MG TABLET (FP) PO ONE (17:16)
[2023-12-05 17:25] VITALS: BP 136/69; PULSE 66; RESP 20; TEMP 98.1; BMI 29.2
== END 2023-12-05 18:19 | disposition home or self-care (01) ==
LOC: FER 16:50
DX: S62.525A Nondisplaced fracture of distal phalanx of left thumb, initial encounter for closed fracture (principal); W23.0XXA Caught, crushed, jammed, or pinched between moving objects, initial encounter
CPT/HCPCS: 73140-TC-RT-FY; 99283-25

== ENCOUNTER 2024-03-27 15:19 | Emergency (ER) | payer OTHER ==
[2024-03-27 15:27] VITALS: BP 147/80; PULSE 60; RESP 20; TEMP 98; BMI 30.4
[2024-03-27] MEDS ORDERED: KETOROLAC TROMETHAMINE 15 MG/ML VIAL ONE (16:37)
[2024-03-27] MEDS: KETOROLAC TROMETHAMINE 30 MG/1 ML VIAL IM ONE (16:42)
[2024-03-27 16:52] LABS: URINE APPEARANCE CLEAR; URINE BILIRUBIN NEGATIVE (NEGATIVE); URINE COLOR YELLOW; URINE GLUCOSE (UA) NEGATIVE (NEGATIVE); URINE KETONE NEGATIVE (NEGATIVE); URINE LEUK ESTERASE NEGATIVE (NEGATIVE); URINE NITRITE NEGATIVE (NEGATIVE); URINE PROTEIN NEGATIVE (NEGATIVE); URINE UROBILINOGEN 0.2 mg/dL (0.2-1.0)
[2024-03-27] MEDS ORDERED: ACETAMINOPHEN 325 MG TABLET (FP) ONE (21:00)
[2024-03-27] MEDS: ACETAMINOPHEN 325 MG TABLET (FP) PO ONE (21:18)
== END 2024-03-27 21:49 | disposition home or self-care (01) ==
LOC: JERFT 15:19
PROC: 3E0233Z Introduction of Anti-inflammatory into Muscle, Percutaneous Approach (ICD-10-PCS; principal; 2024-03-27)
DX: S39.012A Strain of muscle, fascia and tendon of lower back, initial encounter (principal); M54.6 Pain in thoracic spine; M25.512 Pain in left shoulder; V49.40XA Driver injured in collision with unspecified motor vehicles in traffic accident, initial encounter; Y92.410 Unspecified street and highway as the place of occurrence of the external cause
CPT/HCPCS: 70450-TC; 71046-TC-FY; 72070-TC-FY; 72100-TC-FY; 72125-TC; 73030-TC-LT-FY; 81003; 87086; 99285-25

== ENCOUNTER 2024-06-03 08:20 | Emergency (ER) | payer OTHER ==
[2024-06-03 08:49] VITALS: BP 140/89; PULSE 63; RESP 18; TEMP 98.6; BMI 29.7
[2024-06-03 08:52] LABS: EPITHELIAL CELLS 0-5 /hpf
[2024-06-03] MEDS ORDERED: ACETAMINOPHEN 325 MG TABLET (FP) ONE (08:54)
[2024-06-03] MEDS ORDERED: IBUPROFEN 600 MG TABLET (FP) PO ONE (08:54)
[2024-06-03] MEDS: IBUPROFEN 600 MG TABLET (FP) PO ONE (08:57)
[2024-06-03] MEDS: ACETAMINOPHEN 325 MG TABLET (FP) PO ONE (08:58)
[2024-06-03 09:09] LABS: BILIRUBIN,TOTAL 0.5 mg/dl (0.2-1); CALCIUM 8.9 mg/dl (8.5-10.1); POTASSIUM 3.5 mmol/L (3.5-5.1)
[2024-06-03 14:08] LABS: HIV INTERPRETATION NEGATIVE (NEGATIVE)
== END 2024-06-03 09:31 | disposition home or self-care (01) ==
LOC: FER 08:20
DX: N30.90 Cystitis, unspecified without hematuria (principal); R30.0 Dysuria; M54.50 Low back pain, unspecified; R10.30 Lower abdominal pain, unspecified
CPT/HCPCS: 36415; 80053; 81003; 81015; 86803; 87086; 87389; 99283-25

== ENCOUNTER 2024-09-03 07:04 | Inpatient (IN) | payer OTHER ==
[2024-08-31 13:33] VITALS: BMI 29.7
[2024-09-03] MEDS ORDERED: VANCOMYCIN 1,000 MG VIAL (RESTRICTED TO ID ONLY) ONE (08:34)
[2024-09-03] MEDS ORDERED: MIDAZOLAM HCL 2 MG/2 ML SINGLE DOSE VIAL ONE (08:52)
[2024-09-03] MEDS ORDERED: PROPOFOL 20 ML ONE (08:53)
[2024-09-03] MEDS ORDERED: ceFAZolin SODIUM 1 GM VIAL ONE (08:55)
[2024-09-03] MEDS ORDERED: TRANEXAMIC ACID 1000 MG/10 ML VIAL ONE ×3 (08:55→12:02)
[2024-09-03] MEDS ORDERED: BUPIVACAINE HCL/PF 0.5% (5MG/ML) 10 ML VIAL ONE (09:09)
[2024-09-03] MEDS ORDERED: BUPIVACAINE HCL/PF 0.5% (5 MG/ML) 30 ML VIAL IJ ONE (09:09)
[2024-09-03] MEDS ORDERED: ROPIVACAINE HCL/PF 100 MG/20 ML VIAL ONE (09:09)
[2024-09-03] MEDS ORDERED: ONDANSETRON 4 MG/2 ML VIAL IVPUSH PRN ×2 (09:26→12:05)
[2024-09-03] MEDS ORDERED: oxyCODONE HCL 5 MG TABLET PO PRN (09:28)
[2024-09-03] MEDS ORDERED: LACTATED RINGERS SOLUTION 1,000 ML IV SCH (09:30)
[2024-09-03] MEDS ORDERED: DEXAMETHASONE SOD PHOSPHATE 4 MG/1 ML VIAL ONE (10:11)
[2024-09-03] MEDS ORDERED: ONDANSETRON 4 MG/2 ML VIAL ONE (10:11)
[2024-09-03] MEDS ORDERED: PROPOFOL 40 ML ONE (10:14)
[2024-09-03] MEDS ORDERED: BUPIVICAINE 0.25%/MORPH PF/KETOROLAC - 51ML DISP.SYRINGE IA ONE (10:54)
[2024-09-03] MEDS: VANCOMYCIN 1,000 MG VIAL (RESTRICTED TO ID ONLY) IVPB ONE ×2 (11:30)
[2024-09-03] MEDS: BUPIVACAINE HCL/PF 0.25% (2.5MG/ML) 10 ML VIAL IJ ONE (11:40)
[2024-09-03] MEDS: KETOROLAC TROMETHAMINE 30 MG/1 ML VIAL IM ONE (11:40)
[2024-09-03] MEDS: morphine SULFATE/PF 1 MG/2 ML (2cc Syringe - QUVA) IT ONE (11:40)
[2024-09-03] MEDS ORDERED: MAG HYDROX/AL HYDROX/SIMETH 30 ML UNIT-DOSE CUP PO PRN (12:05)
[2024-09-03] MEDS ORDERED: KETOROLAC TROMETHAMINE 30 MG/1 ML VIAL ONE (12:23)
[2024-09-03] MEDS ORDERED: ACETAMINOPHEN INJECTION 100 ML ONE (12:23)
[2024-09-03] MEDS: ACETAMINOPHEN 1000 MG/100 ML BAG IVPB ONE (12:30)
[2024-09-03] MEDS: KETOROLAC TROMETHAMINE 30 MG/1 ML VIAL IVPUSH SCH (12:44)
[2024-09-03] MEDS: CEFAZOLIN 2 GM/D5W 2 GRAM/50 ML ML IVPB SCH (17:47)
[2024-09-03] MEDS: LACTATED RINGERS SOLUTION 1,000 ML IV SCH (17:49)
[2024-09-03] MEDS: oxyCODONE HCL 5 MG TABLET PO PRN (19:55)
[2024-09-03] MEDS: ACETAMINOPHEN 500 MG TABLET (FP) PO SCH (21:47)
[2024-09-03] MEDS: ATORVASTATIN CA 20 MG TABLET (FP) PO SCH (21:47)
[2024-09-03] MEDS: GABAPENTIN 300 MG CAPSULE PO SCH (21:47)
[2024-09-03] MEDS: SENNOSIDES/DOCUSATE COMBO (SENNA PLUS) TABLET (UD) PO SCH (21:47)
[2024-09-04] MEDS: LEVOTHYROXINE NA 75 MCG TABLET (FP) PO SCH (07:03)
[2024-09-04 08:39] LABS: HEMATOCRIT 32.7 % (34.1-44.9); HEMOGLOBIN 10.7 g/dL (11.2-15.7); MCHC 32.7 g/dl (32.2-35.5); MEAN CELL VOLUME 96.7 fl (79.4-94.8); PLATELET COUNT # 167 x10^3/uL (182-369); RDW 12.9 % (12.4-16.6)
[2024-09-04 09:09] LABS: CALCIUM 8.7 mg/dl (8.5-10.1); CREATININE 1.2 mg/dl (0.6-1.3); POTASSIUM 3.9 mmol/L (3.5-5.1)
[2024-09-04] MEDS: MULTIVITAMINS (DAILY MVI) TABLET (FP) PO SCH (09:50)
[2024-09-04] MEDS: ASPIRIN COATED 81 MG TABLET.EC PO SCH (09:50)
[2024-09-04] MEDS: HYDROCHLOROTHIAZIDE 25 MG TABLET (FP) PO SCH (09:50)
[2024-09-04] MEDS: CITALOPRAM HYDROBROMIDE 20 MG TABLET PO SCH (09:50)
[2024-09-04] MEDS: LOSARTAN POTASSIUM 50 MG TABLET PO SCH (09:50)
[2024-09-04] MEDS: GABAPENTIN 100 MG CAPSULE PO SCH (09:50)
[2024-09-04] MEDS: PANTOPRAZOLE 40 MG TABLET PO SCH (09:50)
[2024-09-04] MEDS: oxyCODONE HCL 5 MG TABLET PO ONE ×2 (09:55→20:55)
[2024-09-04] MEDS: CEFAZOLIN 2 GM/D5W 2 GRAM/50 ML ML IVPB SCH (12:51)
[2024-09-05] MEDS ORDERED: oxyCODONE HCL 5 MG TABLET PO PRN (07:23)
[2024-09-05] MEDS: oxyCODONE HCL 5 MG TABLET PO PRN (08:34)
[2024-09-05 08:42] LABS: HEMATOCRIT 32.1 % (34.1-44.9); HEMOGLOBIN 10.4 g/dL (11.2-15.7); MCHC 32.4 g/dl (32.2-35.5); MEAN CELL VOLUME 98.8 fl (79.4-94.8); MEAN PLT VOLUME 13.2 fl (9.4-12.3); PLATELET COUNT # 138 x10^3/uL (182-369); RDW 13.4 % (12.4-16.6)
[2024-09-05] MEDS: NAPROXEN 500 MG TABLET PO SCH (13:25)
[2024-09-07 06:24] VITALS: RESP 18
[2024-09-07 10:11] VITALS: BP 112/58; PULSE 73; TEMP 97.9
== END 2024-09-07 11:05 | DRG 302 ==
LOC: FASUSAT 07:04 → SUATTDRO 07:04 → FM/S 13:32 → FASUSAT 09-04 08:00 → FM/S 09-04 08:32
PROVIDERS: ADMIT Internal Medicine; ATTEND Internal Medicine
PROC: 0SRD0JZ Replacement of Left Knee Joint with Synthetic Substitute, Open Approach (ICD-10-PCS; principal; 2024-09-03 10:38)
DX: M17.12 Unilateral primary osteoarthritis, left knee (principal); M25.562 Pain in left knee
CPT/HCPCS: 36415; 73560-TC-LT-FY; 80048; 85027; 88305-TC; 88311-TC; 94760; 97010-GP; 97116-GP; 97162-GP; C1776; J0131